=== PATIENT | female | born 1930 | race Caucasian/White ===

== ENCOUNTER 2018-07-01 10:08 | Observation (INO) | payer MEDICARE ==
[2018-07-01 11:36] LABS: ALT (SGPT) 14 U/L (8-55); AST (SGOT) 16 U/L (5-34); Alkaline Phosphatase 52 U/L (40-150); Anion Gap 15 mmol/L (10-20); BUN (Urea Nitrogen) 12 mg/dL (9.8-20.1); Bilirubin, Total 0.5 mg/dL (0.2-1.2); CK (CPK) 47 U/L (29-168); Calc. Creatinine Clearance 0 mL/min (70-130); Calcium 9.5 mg/dL (7.8-10.44); Carbon Dioxide 20 mmol/L (23-31); Chloride 106 mmol/L (98-107); Estimated GFR-MDRD 62; Globulin 3.4 g/dL (2.4-3.5); Glucose 98 mg/dL (83-110); Lipase 44 U/L (8-78); Potassium 4.2 mmol/L (3.5-5.1); Protein, Total 7.4 g/dL (6.0-8.3); Sodium 137 mmol/L (136-145)
[2018-07-01 11:38] LABS: CKMB 1.9 ng/mL (0-6.6); Troponin I Less than 0.010 ng/mL (< 0.028)
[2018-07-01 11:55] LABS: #Basophils 0.1 thou/uL (0.0-0.2); #Eosinphils 0.1 thou/uL (0.0-0.7); #Lymphocytes 2.5 thou/uL (1.20-3.40); #Monocytes 0.5 thou/uL (0.11-0.59); #Neutrophils 4.1 thou/uL (1.40-6.50); %Basophils 0.9 % (0.0-1.0); %Eosinophils 1.3 % (0.0-10.0); %Lymphocytes 34.7 % (21.0-51.0); %Monocytes 6.5 % (0.0-10.0); %Neutrophils 56.7 % (42.0-75.0); Hemoglobin 16.3 g/dL (12.0-16.0); Mean Corpuscular HGB CONC 32.4 g/dL (32.0-36.0); Mean Corpuscular Hemoglobin 31.1 pg (27.0-31.0); Mean Corpuscular Volume 95.9 fL (78.0-98.0); Mean Platelet Volume 8.1 fL (7.4-10.4); Platelet Count 261 thou/uL (130-400); Red Blood Cell (RBC) Count 5.25 mill/uL (4.20-5.40); White Blood Cell (WBC) Count 7.3 thou/uL (4.8-10.8)
--- NOTE | 2018-07-01 12:03 | RAD ---
PORTABLE CHEST: Date: 07/01/18 PROVIDED CLINICAL HISTORY: Chest pain. FINDINGS: Comparison with 04/19/17. The cardiac silhouette remains enlarged. Vascular calcification involves the aortic arch. No focal co nsolidation, pleural fluid, or pneumothorax apparent. IMPRESSION: No evidence for an acute cardiopulmonary process. POS: [facility]
[2018-07-01 13:50] VITALS: BMI 26.0
[2018-07-01 14:49] LABS: Troponin I Less than 0.010 ng/mL (< 0.028)
[2018-07-01] MEDS ORDERED: Nitroglycerin 0.4 MG TAB (25 Tab Bottle) SL PRN (16:59)
[2018-07-01] MEDS ORDERED: Ondansetron ODT 4 MG TAB PO PRN (16:59)
[2018-07-01] MEDS ORDERED: hydrALAZINE 20 MG/ML VIAL SLOW IVP PRN (16:59)
[2018-07-01] MEDS ORDERED: Acetaminophen 500 MG TAB PO PRN (16:59)
[2018-07-01] MEDS ORDERED: Ondansetron PF 4 MG/2 ML Vial IVP PRN (16:59)
[2018-07-01 18:04] LABS: Troponin I Less than 0.010 ng/mL (< 0.028)
--- NOTE | 2018-07-01 18:31 | HP ---
DATE OF ADMISSION: 07/01/2018 PRIMARY CARE PROVIDER: Baudilio Morales M.D. PRIMARY CARRY OUT CLERK: Dr. Chance Estes. CHIEF COMPLAINT: Palpitations and chest pain. HISTORY OF PRESENT ILLNESS: This is an 88-year-old female who presents to [facility] Emergency Department complaining of palpitations with pounding of her chest in the code clerk hours on 07/01/2018. The patient also noted a twinge in her left upper chest, lasting up to a minute , resolving spontaneously. The patient with known history of chronic atrial fibrillation on chronic anticoagulation with Eliquis. The patient states she has been compliant with her chronic medication regimen including daily aspirin 81 mg. The patient denied any fever, chills, cough, congestion, rece nt trauma, or exposure history. The patient states she remains active socially. Ambulates without a ssistance or difficulty and lives with her son, but continues to perform all activities of daily [place] ng. The patient denied any associated left arm discomfort, diaphoresis or jaw pain. The patient den ied any specific decreased exercise tolerance or decreased activity level. In the emergency room, th e patient underwent general evaluation including EKG showing atrial fibrillation with heart rates in the 60s. Screening metabolic survey showed negative cardiac biomarkers x2. PAST MEDICAL HISTORY: 1. Chronic atrial fibrillation. 2. Chronic anticoagulation with Eliquis. 3. Hypertension. 4. Hypothyroidism. 5. Dyslipidemia. 6. Coronary artery disease, medically managed. PAST SURGICAL HISTORY: 1. Status post umbilical hernia repair. 2. Status post rectocele repair. 3. Status post bladder suspension. 4. Status post cardiac catheterization. 5. Status post total hysterectomy. 6. Status post cataract removal. CURRENT MEDICATIONS: 1. Digoxin 0.125 mg p.o. daily. 2. Levothyroxine 88 mcg p.o. daily. 3. Nitroglycerin 0.4 mg sublingual every 5 minutes p.r.n. chest pain. 4. Spironolactone 25 mg p.o. daily. 5. Eliquis 2.5 mg p.o. b.i.d. 6. Lopressor 25 mg p.o. b.i.d. ALLERGIES: CODEINE, IODINE, MORPHINE SULFATE, SULFA. FAMILY HISTORY: Mother with liver cancer. Father with prostate and colon cancer. SOCIAL HISTORY: Patient resides near [place], [place]. No current alcohol, tobacco or illicit drug use. Functional of all activities of daily living. Resides with her son and daughter nearby. REVIEW OF SYSTEMS: The following complete review of systems was negative, unless otherwise mentioned in the HPI or below: Constitutional: Weight loss or gain, ability to conduct usual activities. Sk in: Rash, itching. Eyes: Double vision, pain. ENT/Mouth: Nose bleeding, neck stiffness, pain, te nderness. Cardiovascular: Palpitations, dyspnea on exertion, orthopnea. Respiratory: Shortness of breath, wheezing, cough, hemoptysis, fever or night sweats. Gastrointestinal: Poor appetite, abdom inal pain, heartburn, nausea, vomiting, constipation, or diarrhea. Genitourinary: Urgency, frequenc y, dysuria, nocturia. Musculoskeletal: Pain, swelling. Neurologic/Psychiatric: Anxiety, depressio n. Allergy/Immunologic: Skin rash, bleeding tendency. PHYSICAL EXAMINATION: VITAL SIGNS: Currently, blood pressure 119/69, pulse 86, respiratory rate 20, temperature 97.9 degre es Fahrenheit, O2 saturation 95% on room air. GENERAL APPEARANCE: This is an 88-year-old female, alert and oriented x3, pleasant, respon sive, talkative, in no acute distress. HEENT: Pupils are equal, round, and reactive to light and accommodation. Extraocular muscles are in tact. No scleral icterus, no conjunctival injection. Nares patent. OP is clear. Teeth in good rep air. NECK: Supple, no cervical adenopathy, no thyromegaly, no carotid bruits, no JVD appreciated. Cervic al spine with full active and passive range of motion. No meningeal signs noted. CHEST: Lungs are clear to auscultation bilaterally. CARDIOVASCULAR: S1, S2 with irregular rate and rhythm. No murmur, rub or gallop appreciated. ABDOMEN: Obese, soft, nontender, nondistended. Bowel sounds are positive in all four quadrants. Th ere is no hepatosplenomegaly, no abdominal bruits, no rebound or guarding appreciated. EXTREMITIES: Warm and dry with fair turgor. Minimal edema at the ankle region bilaterally. Pulses palpable distally at the dorsalis pedis, posterior tibial, and popliteal arteries bilaterally. Capil evie refill less than 2 seconds. NEUROLOGIC: Cranial nerves II-XII are grossly intact. No focal or lateralizing signs appreciated. PERTINENT LABORATORY AND X-RAY FINDINGS: Complete metabolic profile within normal limits. Troponin negative x2. Lipase 44. CBC showed a white blood cell count of 7.3, hemoglobin 16, hematocrit 50, p latelet count 261 with normal differential. Portable chest x-ray dated 07/01/2018 showed no acute ca rdiopulmonary process. EKG dated 07/01/2018 by my interpretation shows atrial fibrillation with hear t rates in the 60s. Normal R-wave progression noted in the precordial leads. Normal axis. No acute ST-T wave changes appreciated. ASSESSMENT AND PLAN: 1. Chronic atrial fibrillation. The patient will be observed on the telemetry unit. Currently, rat e controlled. We will continue home regimen of metoprolol 25 mg b.i.d. with additional digoxin 0.125 mg daily. No current evidence of rapid ventricular response. Check 2D transthoracic echocardiogram in the a.m. 2. Chest pain, etiology unclear. Potentially related to #1. Continue trending cardiac biomarkers. Check fasting lipid profile in the a.m. P.r.n. nitroglycerin. 3. Hypothyroidism. Resume levothyroxine 88 mcg p.o. daily. Check TSH level in the a.m. 4. Hypertension. Stable. Resume home antihypertensive regimen and monitor clinical response. 5. Prophylaxis. Sequential compression devices while in bed. Pepcid 20 mg p.o. b.i.d. 6. Code status is FULL. Surrogate medical decision maker is the patient's daughter.
[2018-07-01] MEDS: Famotidine 20 MG TAB PO SCH (20:22)
[2018-07-01] MEDS: Apixaban 2.5 MG TAB PO SCH (20:22)
[2018-07-01] MEDS: Metoprolol Tartrate 25 MG TAB PO SCH (20:23)
[2018-07-02 04:12] LABS: Anion Gap 11 mmol/L (10-20); BUN (Urea Nitrogen) 16 mg/dL (9.8-20.1); Calc. Creatinine Clearance 44 mL/min (70-130); Carbon Dioxide 18 mmol/L (23-31); Cardiac Risk 6.3 (Less than 4.5); Chloride 108 mmol/L (98-107); Cholesterol 171 mg/dl (< 200 Desired); Estimated GFR-MDRD 58; Glucose 109 mg/dL (83-110); HDL Cholesterol 27 mg/dL (>60 Neg Risk); LDL Cholesterol, Calculated 100 mg/dL; Magnesium 2.1 mg/dL (1.6-2.6); Potassium 4.3 mmol/L (3.5-5.1); Sodium 133 mmol/L (136-145); Triglycerides 220 mg/dL (Less than 150)
[2018-07-02 04:49] LABS: Band 5 % (5-11); Eosinophils 2 % (0-10); Lymphocytes 47 % (21-51); MDiff Complete? YES; Mean Corpuscular HGB CONC 32.4 g/dL (32.0-36.0); Mean Corpuscular Hemoglobin 31.3 pg (27.0-31.0); Mean Corpuscular Volume 96.8 fL (78.0-98.0); Mean Platelet Volume 8.4 fL (7.4-10.4); Monocytes 4 % (0-10); Neutrophil 41 % (42-75); Platelet Count 248 thou/uL (130-400); Red Blood Cell (RBC) Count 4.78 mill/uL (4.20-5.40); White Blood Cell (WBC) Count 7.2 thou/uL (4.8-10.8)
[2018-07-02] MEDS: Levothyroxine Sodium 88 MCG TAB PO SCH (05:38)
[2018-07-02] MEDS: Digoxin 0.125 MG TAB PO SCH (09:09)
[2018-07-02] MEDS: Metoprolol Tartrate 25 MG TAB PO SCH ×2 (09:09→21:29)
[2018-07-02] MEDS: Apixaban 2.5 MG TAB PO SCH (09:09)
[2018-07-02] MEDS: Spironolactone 25 MG TAB PO SCH (09:10)
--- NOTE | 2018-07-02 11:06 | PDOC.PN ---
- Subjective Encounter Start Date: 07/02/18 Encounter Start Time: 09:30 Subjective: f/u on admission for chronic Afib with bradycardic component -: Patient seen this am, denies any complaints today - Objective Resuscitation Status: Resuscitation Status FULL:Full Resuscitation Vital Signs & Weight: Vital Signs (12 hours) Temp Pulse Resp BP BP Pulse Ox 07/02/18 09:09 82 07/02/18 07:29 97.8 F 82 20 111/70 94 L 07/02/18 03:34 68 20 120/64 95 07/01/18 23:05 98.1 F 79 20 94/59 L 96 Weight Weight 64.552 kg I&O: 07/01/18 07/02/18 07/03/18 06:59 06:59 06:59 Intake Total 450 360 Output Total 650 600 Balance -200 -240 Result Diagrams: 07/02/18 03:36 07/02/18 03:36 Phys Exam - Physical Examination Constitutional: NAD HEENT: PERRLA Neck: no nodes, no JVD Respiratory: clear to auscultation bilateral Cardiovascular: irregular Gastrointestinal: positive bowel sounds Musculoskeletal: no edema, pulses present Neurological: non-focal, normal sensation, moves all 4 limbs Lymphatic: no nodes Psychiatric: normal affect, A&O x 3 Skin: no rash, normal turgor, cap refill <2 seconds Dx/Plan (1) Acute on chronic diastolic (congestive) heart failure Code(s): I50.33 - ACUTE ON CHRONIC DIASTOLIC (CONGESTIVE) HEART FAILURE Status : Chronic Comment: improved with Lasix (2) Atrial fibrillation with RVR Code(s): I48.91 - UNSPECIFIED ATRIAL FIBRILLATION Status: Chronic Comment: Off Cardizem drip, Metoprolol added (3) CAD (coronary artery disease) Code(s): I25.10 - ATHSCL HEART DISEASE OF [place] CORONARY ARTERY W/O ANG PCTRS Status: Chronic (4) DM2 (diabetes mellitus, type 2) Status: Chronic (5) HLD (hyperlipidemia) Code(s): E78.5 - HYPERLIPIDEMIA, UNSPECIFIED Status: Chronic (6) Hypothyroidism Code(s): E03.9 - HYPOTHYROIDISM, UNSPECIFIED Status: Chronic - Plan cont current plan of care Dr. Alicia saw patient this am, recommends -: increasing lopressor, hold Eliquis today and tomorrow -: Would like Dr. Estes to see tomorrow and weigh in on pacemaker placement -: Echocardiogram has been done, awaiting results -: Will continue to monitor, check labs * .
[2018-07-02] MEDS ORDERED: Metoprolol Tartrate 5 MG/5 ML VIAL IVP SCH ×2 (11:15→14:15)
--- NOTE | 2018-07-02 16:16 | CON ---
DATE OF CONSULTATION: 07/02/2018 HISTORY OF PRESENT ILLNESS: Patient is an 88-year-old woman with a history of coronary artery disease who presented with rapid palpitations and chest discomfort. In 2005 she underwent cardiac catheterization, and was found to have a 40%-50% right RCA lesion, 30%-40% mid LAD lesion. The patient has been on medical therapy. She also was diagnosed with atrial fibrillation. She has been treated with digoxin and diltiazem. She is on chronic anticoagulation therapy. The patient was in usual state of health when she once again felt rapid palpitations and left-sided chest discomfort. This lasted for approximately 20 minutes. The patient took some medication and eventually her symptoms resolved. The patient denies having any present palpitations or chest discomfort. PAST MEDICAL HISTORY: 1. Coronary artery disease. 2. Atrial fibrillation. 3. Hypertension. 4. Dyslipidemia. PAST SURGICAL HISTORY: hernia repair, bladder surgery, hysterectomy, cataract surgery, rectocele surgery. MEDICATIONS: Digoxin 0.125 daily, Synthroid 88 mcg daily, spironolactone 25 daily, Eliquis 2.5 b.i.d., and Lopressor 25 daily. ALLERGIES: She is allergic to CODEINE, IODINE, MORPHINE and SULFA. SOCIAL HISTORY: Nonsmoker. FAMILY HISTORY: There is no strong family history of heart disease. REVIEW OF SYSTEMS: Ten-point system otherwise unremarkable. No history of bruising or bleeding. PHYSICAL EXAMINATION: GENERAL: This is an obese woman in no acute distress. VITAL SIGNS: Blood pressure 111/70. NECK: Showed no jugular distention. LUNGS: Clear to auscultation. HEART: Irregular rate and rhythm, normal S1, S2. ABDOMEN: Nondistended. EXTREMITIES: Showed no edema. VASCULAR: Radial pulses are 2+. LABORATORIES: White blood count 7.2, hemoglobin 15.0, hematocrit 46.3, and her platelets are 248. Sodium was 133, potassium 4.3, chloride 108, bicarbonate 18 , BUN 16, creatinine 0.91, troponin less than 0.01. Her EKG revealed her to have atrial fibrillation with a nonspecific T-wave abnormality. IMPRESSION: 1. Atrial fibrillation with rapid ventricular response. 2. Chest pain. 3. Coronary artery disease. 4. Hypertension. This woman presented with chest pain and atrial fibrillation with rapid ventricular response. She also has evidence of having a slow heart rate. At this time, we would try to increase her beta antonia therapy and continue on digoxin. The patient may need an electronic pacemaker because of difficult to control atrial fibrillation. We will hold the patient's Eliquis. We will follow this patient with you through her hospitalization. ZOILA
[2018-07-02] MEDS: Famotidine 20 MG TAB PO SCH (21:32)
[2018-07-03 04:11] LABS: #Basophils 0.1 thou/uL (0.0-0.2); #Eosinphils 0.1 thou/uL (0.0-0.7); #Lymphocytes 3.6 thou/uL (1.20-3.40); #Monocytes 0.6 thou/uL (0.11-0.59); #Neutrophils 2.9 thou/uL (1.40-6.50); %Basophils 0.8 % (0.0-1.0); %Eosinophils 1.6 % (0.0-10.0); %Lymphocytes 49.6 % (21.0-51.0); %Monocytes 7.7 % (0.0-10.0); %Neutrophils 40.3 % (42.0-75.0); Hemoglobin 16.6 g/dL (12.0-16.0); Mean Corpuscular HGB CONC 34.2 g/dL (32.0-36.0); Mean Corpuscular Hemoglobin 32.5 pg (27.0-31.0); Mean Corpuscular Volume 95.1 fL (78.0-98.0); Mean Platelet Volume 8.3 fL (7.4-10.4); Platelet Count 214 thou/uL (130-400); Red Blood Cell (RBC) Count 5.09 mill/uL (4.20-5.40); White Blood Cell (WBC) Count 7.2 thou/uL (4.8-10.8)
[2018-07-03] MEDS: Levothyroxine Sodium 88 MCG TAB PO SCH (05:47)
[2018-07-03 06:11] LABS: ALT (SGPT) 9 U/L (8-55); AST (SGOT) 15 U/L (5-34); Albumin 3.6 g/dL (3.4-4.8); Alkaline Phosphatase 43 U/L (40-150); Anion Gap 13 mmol/L (10-20); BUN (Urea Nitrogen) 15 mg/dL (9.8-20.1); Bilirubin, Total 0.5 mg/dL (0.2-1.2); Calc. Creatinine Clearance 42 mL/min (70-130); Calcium 9.3 mg/dL (7.8-10.44); Carbon Dioxide 21 mmol/L (23-31); Chloride 106 mmol/L (98-107); Estimated GFR-MDRD 55; Globulin 3.2 g/dL (2.4-3.5); Glucose 106 mg/dL (83-110); Potassium 4.1 mmol/L (3.5-5.1); Protein, Total 6.8 g/dL (6.0-8.3); Sodium 136 mmol/L (136-145)
[2018-07-03] MEDS: Digoxin 0.125 MG TAB PO SCH (08:34)
[2018-07-03] MEDS: Spironolactone 25 MG TAB PO SCH (08:35)
[2018-07-03] MEDS: Metoprolol Tartrate 25 MG TAB PO SCH ×2 (08:35→20:20)
[2018-07-03] MEDS ORDERED: ADENOSINE 60 MG/20 ML VIAL ONE (10:33)
--- NOTE | 2018-07-03 15:45 | NM ---
CARDIAC SPECT: CLINICAL HISTORY: 88-year-old female with chest pain, coronary artery disease, hypertension, dyslipidemia. TECHNIQUE: A myocardial perfusion scan was performed using the single isotope one day protocol with technetium-9 9m sestamibi. 10 mCi were injected intravenously for the rest exam followed by 27 mCi for the stress exam. Pharmacologic stress with Adenosine was monitored and interpreted by Taryn Schumacher. FINDINGS: Homogeneous tracer distribution is seen in the myocardial segments on stress and rest images without fixed or reversible defects. TID ratio measures 1.37. GATED SPECT LVEF: 82%. WALL MOTION EXAM: Normal. IMPRESSION: TID ratio is 1.37. Clinical correlation is recommended. POS: [facility]
--- NOTE | 2018-07-03 17:59 | PDOC.PN ---
- Subjective Encounter Start Date: 07/03/18 Encounter Start Time: 16:00 Patient lying in bed, denies chest pain, shortness of breath or abdominal pain. Troponins negative. Echo reviewed and EF 60-65%. Dr Estes recommending Stress test and no further plans for pacemaker at this time as she is not bradycardic. - Objective Resuscitation Status: Resuscitation Status FULL:Full Resuscitation MAR Reviewed: Yes Vital Signs & Weight: Vital Signs (12 hours) Temp Pulse Resp BP Pulse Ox 07/03/18 15:27 97.8 F 75 20 117/83 96 07/03/18 08:34 82 07/03/18 07:24 97.7 F 82 18 114/70 97 Weight Weight 142 lb 5 oz I&O: 07/02/18 07/03/18 07/04/18 06:59 06:59 06:59 Intake Total 450 840 750 Output Total 650 1000 Balance -200 -160 750 Result Diagrams: 07/03/18 03:48 07/03/18 03:48 Radiology Reviewed by me: Yes EKG Reviewed by me: Yes Phys Exam - Physical Examination Constitutional: NAD HEENT: PERRLA, moist MMs, sclera anicteric, oral pharynx no lesions Neck: no nodes, no JVD, supple Respiratory: no wheezing, no rales, no rhonchi, clear to auscultation bilateral Cardiovascular: RRR, no significant murmur, no rub Gastrointestinal: soft, non-tender, no distention, positive bowel sounds Musculoskeletal: no edema, pulses present Neurological: non-focal, normal sensation, moves all 4 limbs Lymphatic: no nodes Psychiatric: normal affect, A&O x 3 Skin: no rash, normal turgor Deviation from normal: Diffuse bruising upper extremities Dx/Plan (1) Acute on chronic diastolic (congestive) heart failure Code(s): I50.33 - ACUTE ON CHRONIC DIASTOLIC (CONGESTIVE) HEART FAILURE Status : Chronic Comment: improved with Lasix (2) Atrial fibrillation with RVR Code(s): I48.91 - UNSPECIFIED ATRIAL FIBRILLATION Status: Chronic Comment: Off Cardizem drip, Metoprolol added (3) CAD (coronary artery disease) Code(s): I25.10 - ATHSCL HEART DISEASE OF [place] CORONARY ARTERY W/O ANG PCTRS Status: Chronic (4) DM2 (diabetes mellitus, type 2) Status: Chronic - Plan cont current plan of care * Continue medical management with eliquis, digoxin, Metoprolol * Echo reviewed and unremarkable with EF of 60-65% * Stress test was unremarkablewith no signs of ischemia or infarct with no wall motion abnormalities. TID elevated, but Dr Estes believes this is insignificant , no plans for pacemaker * Due to transportation, patient unable to find a ride tonight but will be discharged in the AM
[2018-07-03] MEDS: Famotidine 20 MG TAB PO SCH (20:20)
--- NOTE | 2018-07-03 23:59 | PRG ---
DATE OF SERVICE: 07/03/2018 HISTORY: Ms. Castañeda is doing well, no chest pain or pressure. Her metoprolol dose was increased. She has not had any bradycardia. PHYSICAL EXAMINATION: VITAL SIGNS: Blood pressure 117/83, pulse 70 and irregularly irregular. ABDOMEN: Soft, nontender. EXTREMITIES: No edema. ASSESSMENT: 1. Episode of rapid heart rate with chronic atrial fibrillation, now rate controlled. 2. Stress test was negative for ischemia. It was noted that there was some increase TID (transient ischemic dilatation); however, this does not appear to be clinically significant as the ventricular v olumes were extremely small and so the left ventricle was not dilated . The reported volume is 20 mL; with stress, it was 29 mL end diastolic and 5 mm end systolic, so clearly not dilated. 1. No evidence of stress induced ischemia. 2. Heart rate is controlled with current regimen. Okay to be released home. For transportation [facility], the patient will need to be kept tonight and go home tomorrow.
[2018-07-04 04:17] LABS: #Basophils 0.1 thou/uL (0.0-0.2); #Eosinphils 0.2 thou/uL (0.0-0.7); #Lymphocytes 3.8 thou/uL (1.20-3.40); #Monocytes 0.6 thou/uL (0.11-0.59); #Neutrophils 3.6 thou/uL (1.40-6.50); %Basophils 1.4 % (0.0-1.0); %Eosinophils 1.9 % (0.0-10.0); %Lymphocytes 45.8 % (21.0-51.0); %Monocytes 7.4 % (0.0-10.0); %Neutrophils 43.5 % (42.0-75.0); Hemoglobin 16.2 g/dL (12.0-16.0); Mean Corpuscular HGB CONC 32.4 g/dL (32.0-36.0); Mean Corpuscular Hemoglobin 30.9 pg (27.0-31.0); Mean Corpuscular Volume 95.3 fL (78.0-98.0); Mean Platelet Volume 8.6 fL (7.4-10.4); Platelet Count 259 thou/uL (130-400); RBC Distribution Width 11.9 % (11.5-14.5); Red Blood Cell (RBC) Count 5.24 mill/uL (4.20-5.40); White Blood Cell (WBC) Count 8.3 thou/uL (4.8-10.8)
[2018-07-04 04:40] LABS: ALT (SGPT) 14 U/L (8-55); AST (SGOT) 18 U/L (5-34); Albumin 3.5 g/dL (3.4-4.8); Alkaline Phosphatase 45 U/L (40-150); Anion Gap 14 mmol/L (10-20); BUN (Urea Nitrogen) 15 mg/dL (9.8-20.1); Bilirubin, Total 0.5 mg/dL (0.2-1.2); Calc. Creatinine Clearance 45 mL/min (70-130); Calcium 9.3 mg/dL (7.8-10.44); Carbon Dioxide 19 mmol/L (23-31); Chloride 108 mmol/L (98-107); Estimated GFR-MDRD 59; Globulin 3.3 g/dL (2.4-3.5); Glucose 101 mg/dL (83-110); Potassium 4.5 mmol/L (3.5-5.1); Protein, Total 6.8 g/dL (6.0-8.3); Sodium 136 mmol/L (136-145)
[2018-07-04] MEDS: Levothyroxine Sodium 88 MCG TAB PO SCH (05:28)
[2018-07-04 08:02] VITALS: BP 117/72; TEMP 98
[2018-07-04] MEDS: Spironolactone 25 MG TAB PO SCH (08:41)
[2018-07-04] MEDS: Digoxin 0.125 MG TAB PO SCH (08:41)
[2018-07-04] MEDS: Metoprolol Tartrate 25 MG TAB PO SCH (08:41)
[2018-07-04] MEDS ORDERED: Apixaban 2.5 MG TAB PO SCH (09:00)
--- NOTE | 2018-07-04 18:52 | DIS ---
DATE OF ADMISSION: 07/01/2018 DATE OF DISCHARGE: 07/04/2018 DISCHARGE DIAGNOSES: 1. Chronic atrial fibrillation, currently rate controlled. 2. Chest pain likely related to atrial fibrillation, resolved. 3. Hypothyroidism, stable. 4. Hypertension, stable. CONSULTATIONS: Cardiology services, Dr. Alicia and Dr. Estes. PERTINENT LABORATORY AND DIAGNOSTIC FINDINGS: WBC 8.3, RBC 5.24, hemoglobin 16.2. Sodium 136, potas sium 4.5, creatinine 0.90, GFR 59, glucose 101, magnesium 2.1, AST 18, ALT 14, troponin less than 0.0 10 x2. Triglycerides 220, total cholesterol 171, LDL cholesterol 100, HDL cholesterol 27. TSH 5.97. Portable chest x-ray showed no evidence of acute cardiopulmonary process. Cardiolite stress test s howed no wall motion abnormalities and no signs of ischemia. Echocardiogram displays an ejection fra ction of 60-65%. HOSPITAL COURSE: Mrs. Castañeda is a pleasant 88-year-old female who had presented to the emergency d [facility] with chest discomfort and palpitations. In the ER, she had an EKG which showed atrial fibr illation with heart rates in the 60s. Serial troponins were obtained and found to be negative x2. S he had stated that her palpitations would last several moments; however, would spontaneously resolve. She was continued on home regimen for atrial fibrillation, hypothyroidism and hypertension. Cardio logy services, Dr. Alicia were consulted. Her home dose of metoprolol was increased to 50 mg twice daily. She had tolerated this well. She underwent an echocardiogram which showed an ejection fract ion of 60-65%. There was some concern of her being bradycardic and needing a pacemaker; however, Dr. Estes came and evaluated the patient. Her heart rate remained stable with a rate in the 60s and [address] Estes ordered a stress test which was found to be unremarkable and showed no signs of ischem ia with no wall motion abnormalities. He had determined no further workup needed and patient did not require a pacemaker placement at this time. Dr. Estes did determine that the patient was stable fr om a cardiology standpoint; however, did recommend her follow up as an outpatient. Due to patient's lack of transportation, she was held overnight and seen and examined prior to discharge. She had den ied any further complaints of chest pain, shortness of breath or abdominal pain. She was instructed to take the new dose of metoprolol 50 mg twice daily along with her other home medications. She had verbalized her understanding of the plan. She was determined to be medically stable for discharge ho co on 07/04/2018. DISCHARGE MEDICATIONS: 1. Metoprolol 50 mg twice daily. 2. Spironolactone 25 mg daily. 3. Digoxin 0.125 mg oral daily. 4. Levothyroxine 88 mcg oral daily. 5. Apixaban 2.5 mg twice daily. 6. Nitroglycerin 0.4 mg sublingual every 5 minutes as needed for chest pain. 7. Aspirin 81 mg at bedtime. FOLLOWUP: The patient was instructed to follow up with her primary care physician, Dr. Morales in 1-2 weeks. She was also instructed to follow up with her customer advisor in 2-4 weeks. CONDITION ON DISCHARGE: Stable. ACTIVITY: As tolerated. DIET: Heart healthy. CODE STATUS: FULL CODE. DISPOSITION: Home on 07/04/2018.
== END 2018-07-04 09:42 | disposition home or self-care (01) ==
LOC: ERS 10:08 → 2SW 13:43
PROVIDERS: ADMIT Family Medicine; ATTEND Family Medicine
DX: I48.2 Chronic atrial fibrillation (principal); I11.0 Hypertensive heart disease with heart failure; I50.33 Acute on chronic diastolic (congestive) heart failure; E11.9 Type 2 diabetes mellitus without complications; E03.9 Hypothyroidism, unspecified; I25.10 Atherosclerotic heart disease of native coronary artery without angina pectoris; E78.5 Hyperlipidemia, unspecified; Z79.899 Other long term (current) drug therapy; Z79.01 Long term (current) use of anticoagulants; Z88.2 Allergy status to sulfonamides; Z91.041 Radiographic dye allergy status
CPT/HCPCS: 71045; 78452; 80048; 80053 ×3; 80061; 82550; 82553; 83690; 83735; 84443; 84484 ×2; 85007; 85025 ×3; 85027; 93005; 93017; 93306; 96374; 99285; A9500; G0378 ×3; 36415; J0153

== ENCOUNTER 2019-03-17 07:50 | Emergency (ER) | payer MEDICARE ==
[2019-03-17 08:28] LABS: #Basophils 0.1 thou/uL (0.0-0.2); #Eosinphils 0.1 thou/uL (0.0-0.7); #Lymphocytes 2.4 thou/uL (1.20-3.40); #Monocytes 0.4 thou/uL (0.11-0.59); %Basophils 1.2 % (0.0-1.0); %Eosinophils 1.1 % (0.0-10.0); %Lymphocytes 40.2 % (21.0-51.0); %Monocytes 6.5 % (0.0-10.0); Hemoglobin 15.4 g/dL (12.0-16.0); Mean Corpuscular HGB CONC 34.1 g/dL (32.0-36.0); Mean Corpuscular Hemoglobin 32.1 pg (27.0-31.0); Mean Corpuscular Volume 94.2 fL (78.0-98.0); Mean Platelet Volume 8.6 fL (7.4-10.4); Platelet Count 223 thou/uL (130-400); RBC Distribution Width 12.2 % (11.5-14.5); Red Blood Cell (RBC) Count 4.81 mill/uL (4.20-5.40)
[2019-03-17 08:48] LABS: Digoxin 0.82 ng/mL (0.8-2.0)
[2019-03-17 08:49] LABS: ALT (SGPT) 10 U/L (8-55); AST (SGOT) 14 U/L (5-34); Albumin 3.7 g/dL (3.4-4.8); Alkaline Phosphatase 47 U/L (40-150); Anion Gap 11 mmol/L (10-20); BUN (Urea Nitrogen) 11 mg/dL (9.8-20.1); Bilirubin, Total 0.4 mg/dL (0.2-1.2); Calc. Creatinine Clearance 0 mL/min (70-130); Calcium 9.4 mg/dL (7.8-10.44); Carbon Dioxide 24 mmol/L (23-31); Chloride 105 mmol/L (98-107); Estimated GFR-MDRD 65; Globulin 3.1 g/dL (2.4-3.5); Glucose 100 mg/dL (83-110); Potassium 3.8 mmol/L (3.5-5.1); Protein, Total 6.8 g/dL (6.0-8.3); Sodium 136 mmol/L (136-145)
[2019-03-17 09:37] LABS: Bilirubin Negative (Negative); Blood, Urine Negative (Negative); Clarity Clear (Clear); Glucose, Urine (Dipstick) Normal (Negative); Leukocyte Negative Leu/uL (Negative); Nitrite Negative (Negative); Protein, Urine (Dipstick) Negative (Neg-Trace); Urobilinogen Normal mg/dL (Less than 2)
--- NOTE | 2019-03-17 09:40 | RAD ---
PORTABLE CHEST 1 VIEW: Date: 03/17/19 Time: 0821 hours HISTORY: Palpitations. FINDINGS: Comparison made with exam of 07/01/18. The heart size is prominent but stable. The aorta is tortuous. The lungs are well expanded without lo bar consolidation, pneumothoraces, or pleural effusions. A right humeral head prosthesis remains in p lace. There are degenerative changes in the left shoulder joint. IMPRESSION: No acute process. POS: [facility]
== END 2019-03-17 10:32 | disposition home or self-care (01) ==
LOC: ERS 07:50
DX: R00.2 Palpitations (principal); E03.9 Hypothyroidism, unspecified; I49.9 Cardiac arrhythmia, unspecified; I48.91 Unspecified atrial fibrillation; I10 Essential (primary) hypertension; Z79.899 Other long term (current) drug therapy; Z79.01 Long term (current) use of anticoagulants; Z79.82 Long term (current) use of aspirin
CPT/HCPCS: 36415; 71045; 80053; 80162; 81003; 84484; 85025; 93005

== ENCOUNTER 2019-09-01 10:05 | Inpatient (IN) | payer MEDICARE ==
[2019-09-01 11:05] LABS: #Basophils 0.1 thou/uL (0.0-0.2); #Eosinphils 0.1 thou/uL (0.0-0.7); #Lymphocytes 2.8 thou/uL (1.20-3.40); #Monocytes 0.4 thou/uL (0.11-0.59); #Neutrophils 4.5 thou/uL (1.40-6.50); %Basophils 1.4 % (0.0-1.0); %Eosinophils 1.5 % (0.0-10.0); %Lymphocytes 35.5 % (21.0-51.0); %Monocytes 5.1 % (0.0-10.0); %Neutrophils 56.5 % (42.0-75.0); Mean Corpuscular HGB CONC 33.8 g/dL (32.0-36.0); Mean Corpuscular Volume 97.5 fL (78.0-98.0); Mean Platelet Volume 8.5 fL (7.4-10.4); Platelet Count 239 thou/uL (130-400); RBC Distribution Width 12.2 % (11.5-14.5); Red Blood Cell (RBC) Count 4.86 mill/uL (4.20-5.40)
--- NOTE | 2019-09-01 11:06 | CT ---
CT Brain WO Con History: Left-sided tingling Comparison: MRI brain 2014 Findings: There is no acute hemorrhage or infarct. No midline shift or mass effect. Moderate atrophy. Mild ex vacuo dilatation of the extra-axial CSF spaces. There is hyperostosis of the inner table fron herminio calvarium. Calvarium is demineralized. Impression: Chronic findings. No acute intracranial abnormality.
[2019-09-01 11:10] LABS: Bacteria/HPF 4+ HPF (None Seen); Bilirubin Negative (Negative); Blood, Urine Trace (Negative); Clarity Turbid (Clear); Glucose, Urine (Dipstick) Normal (Negative); Leukocyte 500 Leu/uL (Negative); Nitrite 1+ (Negative); Protein, Urine (Dipstick) Negative (Neg-Trace); Urobilinogen Normal mg/dL (Less than 2); WBC/HPF Greater than 50 HPF (0-3)
[2019-09-01 11:13] LABS: INR-International Normal Ratio 1.1; PTT 28.6 SEC (22.9-36.1); Prothrombin Time 13.7 SEC (12.0-14.7)
[2019-09-01 11:32] LABS: ALT (SGPT) 18 U/L (8-55); AST (SGOT) 23 U/L (5-34); Albumin 3.5 g/dL (3.4-4.8); Alkaline Phosphatase 45 U/L (40-110); Anion Gap 14 mmol/L (10-20); BUN (Urea Nitrogen) 14 mg/dL (9.8-20.1); Bilirubin, Total 0.8 mg/dL (0.2-1.2); Calc. Creatinine Clearance 0 mL/min (70-130); Calcium 9.2 mg/dL (7.8-10.44); Carbon Dioxide 18 mmol/L (23-31); Chloride 109 mmol/L (98-107); Estimated GFR-MDRD 69; Globulin 3.5 g/dL (2.4-3.5); Glucose 93 mg/dL (83-110); Potassium 4.4 mmol/L (3.5-5.1); Sodium 137 mmol/L (136-145)
[2019-09-01] MEDS ORDERED: Nitrofurantoin Macrocrystal 50 MG CAP PO SCH (12:00)
[2019-09-01] MEDS ORDERED: cefTRIAXone\\ROCEPHIN 1 GM VIAL ONE (12:36)
[2019-09-01 13:56] VITALS: BMI 25.0
[2019-09-01] MEDS: Sodium Chloride 0.9% 1,000 ML IV SCH ×2 (15:36→22:06)
--- NOTE | 2019-09-01 17:21 | PDOC.EVN ---
Event Note - Event Note Event Note: per her home meds she is on eliquis but 2.5mg bid will increase it to 5mg bid. Her creatinine is normal and she weighs 136lbs.
[2019-09-01] MEDS: cefTRIAXone\\ROCEPHIN 1 GM in Sodium Chloride 0.9% 100 ML IVPB SCH (18:37)
--- NOTE | 2019-09-01 19:57 | HP ---
CHIEF COMPLAINT: Left-sided weakness. HISTORY OF PRESENT ILLNESS: The patient is an 89-year-old female, who initially presented to the hospital after waking up around 5 a.m. complaining of complete left-sided numbness and weakness. The patient stated that she tried to get out to her bedside commode and felt very weak on her left side; however, she did make it. She also complains of some dysuria. Denies any stroke-like symptoms in the past. Denies any recent fevers or chills. She states that she does have chronic diarrhea. The patient lives alone. She does have a history of atrial fibrillation and has been compliant with her medications. PAST MEDICAL HISTORY: 1. She has a history of atrial fibrillation. 2. Hypertension. PAST SURGICAL HISTORY: She has had appendectomy. She has had a cholecystectomy. She has had a hernia repair. She has had rectocele repair and hysterectomy. SOCIAL HISTORY: She lives alone. Her daughter is at the bedside. She has a secondhand smoking history. No alcohol use. No drug use. FAMILY HISTORY: No history of heart disease or strokes. ALLERGIES: SHE IS ALLERGIC TO CODEINE, IODINE, MORPHINE, AND SULFA. MEDICATIONS: She is on, 1. Spironolactone 25 mg daily. 2. Metoprolol 25 mg daily. 3. Aspirin 81 mg daily. 4. Eliquis 5 mg twice a day. 5. Digoxin 125 mcg daily. 6. Levothyroxine 175 mcg daily. REVIEW OF SYSTEMS: All negative except for the ones mentioned above in the HPI. PHYSICAL EXAMINATION: VITAL SIGNS: Temperature 98.0, pulse 81, respirations 16, 99% on room air, blood pressure 155/86. GENERAL: She is awake, alert, and oriented x3. Does not appear in any distress. HEENT: Normocephalic and atraumatic. No lymphadenopathy noted. NEUROLOGIC: Cranial nerves 3 through 11 are intact. CV: S1 and S2 present. Irregularly irregular. LUNGS: Clear to auscultation. No rhonchi or wheezes noted. ABDOMEN: Soft and nontender. Bowel sounds are present x2. EXTREMITIES: No edema. NEUROVASCULAR: She has decreased strength to her left lower extremity compared to her right. Sensation has decreased on the left upper and lower extremity compared to her right. SKIN: She does have a decubitus ulcer to her bottom and she does have some minor lacerations to her vaginal area. LABORATORY RESULTS: WBCs of 8.0, hemoglobin of 16.0, hematocrit of 47.4, platelets of 239. Chemistry; sodium of 137, potassium 4.4, BUN of 14, creatinine 0.79. Her urine appears grossly concentrated with leukocyte esterase of 500, wbc's of greater than 50. She did have a CT brain, which did not show any acute abnormalities. ASSESSMENT AND PLAN: The patient is a very pleasant 89-year-old female, who presents to the hospital with left-sided weakness. 1. Left-sided weakness. Most likely, possible transient ischemic attack versus stroke. She is currently on Eliquis. We will continue her Eliquis for now. I will also consult Neurology. We will get an MRI brain. We will also get carotid Dopplers and echocardiogram. 2. Urinary tract infection. We will start her on ceftriaxone. Her urine culture has been sent. 3. Hypertension. We will hold off on her blood pressure medications. We will monitor closely. 4. Deep venous thrombosis prophylaxis. The patient is already on Eliquis. Job ID: [id number]
[2019-09-01] MEDS ORDERED: Phenazopyridine HCl 97.5 MG TABLET PO SCH (20:30)
[2019-09-01] MEDS ORDERED: Apixaban 5 MG TAB PO SCH (21:00)
--- NOTE | 2019-09-01 21:15 | ULT ---
BILATERAL CAROTID DUPLEX ULTRASOUND: HISTORY: Left-sided weakness TECHNIQUE: Grayscale, color-flow and spectral Doppler ultrasound imaging of the extracranial carotid artery syst ems and vertebral arteries was performed bilaterally. FINDINGS: There are mild atherosclerotic plaque involving the proximal internal carotid arteries bilaterally. The peak systolic velocity in the right ICA measures 58.5 cm/s. The peak systolic velocity in the ri ght CCA measures 52.9 cm/s. The peak systolic velocity in the left ICA measures 60.1 cm/s. The peak systolic velocity in the l eft CCA measures 48.1 cm/s. The right IC/CC ratio is1.11. The left IC/CC ratio is 1.25. Vertebral flow: antegrade, bilaterally. . IMPRESSION: No hemodynamically significant stenosis of both internal carotid arteries.
[2019-09-01] MEDS: Aspirin 81 mg Enteric Coated Tablet PO SCH (21:48)
[2019-09-01] MEDS: Apixaban 5 MG TAB PO SCH (21:49)
[2019-09-01] MEDS: Atorvastatin Calcium 40 MG TAB PO SCH (21:49)
[2019-09-01] MEDS: Acetaminophen 325 MG TAB PO PRN (22:05)
[2019-09-02 05:43] LABS: Cardiac Risk 6.2 (Less than 4.5)
[2019-09-02] MEDS: Levothyroxine Sodium 88 MCG TAB PO SCH (07:47)
[2019-09-02] MEDS: Digoxin 0.125 MG TAB PO SCH (09:11)
[2019-09-02] MEDS: Phenazopyridine HCl 97.5 MG TABLET PO SCH ×3 (09:12→18:02)
[2019-09-02] MEDS: Apixaban 5 MG TAB PO SCH ×2 (09:12→21:44)
--- NOTE | 2019-09-02 10:50 | CON ---
DATE OF TELEMEDICINE CONSULTATION: 09/02/2019 CHIEF COMPLAINT: Acute stroke. HISTORY OF PRESENT ILLNESS: The patient reports she has had weakness of her left leg occasionally early in the morning, on and off, over the past several months , but she was brought in with left-sided numbness and she felt like her entire left side fell asleep. She has discomfort in the left foot, arm, and eye. She feels like there is something in the eye and she needs to take it out, and the eye is painful, and she says it is hard to describe feeling at the left side. She has never had any stroke in the past. She also is experiencing weakness on the left side. She has no difficulties with her vision. No speech difficulty was expressed. PREVIOUS MEDICAL HISTORY: Hypertension and atrial fibrillation. PAST SURGICAL HISTORY: She had 5 hernia repairs, last one was 20 years ago; right shoulder replacement; gallbladder surgery. SOCIAL HISTORY: She lives with her son. She is a nonsmoker. No alcohol use. FAMILY HISTORY: The patient has a sister, who from a heat stroke at 58 or 59 years of age. Father is unknown to the patient. Mother of cancer of the liver at 93. Her son has had a TIA. She has 6 children, 4 boys and 2 girls, all her sons have had coronary artery disease and atrial fibrillation, and her daughter are healthy. REVIEW OF SYSTEMS: Currently, PULMONARY: Negative for shortness of breath or cough. GI: Negative for nausea, vomiting or diarrhea. CARDIAC: Positive for atrial fibrillation. Negative for chest pain. NEUROLOGIC: Positive for numbness and weakness on the left side of the body. DERMATOLOGIC: Negative for any skin rash. OPHTHALMOLOGIC: Negative for any vision issues. LABORATORY DATA: White count 8.0, hemoglobin 16, hematocrit 47.4, and platelet count 239. Chemistry; sodium 137, potassium 4.4, chloride 109, bicarb 18, BUN 14, and creatinine 0.79. AST 23, ALT 18, alk phos 45. Lipid profile within normal limits. Her MRI is currently pending. I reviewed her CT scan, which did not show any acute lesion, and her carotid Doppler was completed, and her Doppler study does not show any hemodynamically significant stenosis of carotid arteries. PHYSICAL EXAMINATION: VITAL SIGNS: Temperature 98.6, pulse 86, respiratory rate 16, O2 sats 97%, and blood pressure . GENERAL APPEARANCE: Well-built, well-nourished lady, who is comfortable in bed, very pleasant. CHEST: Clear vesicular breathing. CARDIOVASCULAR: S1 and S2 heard. No murmurs. ABDOMEN: Soft and nontender. No organomegaly noted. NEUROLOGICAL: Higher intellectual functions, normal orientation to time, place and person. Cranial nerves; normal extraocular movements, no facial asymmetry, decreased sensation of the face on the left side, normal hearing bilaterally to finger rub, tongue midline, no atrophy noted. Motor examination; bulk normal, tone normal, strength is 5/5 on the right side and on the left side. 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 Muscle groups tested are deltoid, biceps, triceps, wrist extension and flexion, finger extension and flexion bilaterally. Cerebellar exam is normal [id number] and heel-to- ortez. Sensory is decreased on the left side in the face, arm and leg distribution. Deep tendon reflexes are 2+ on the right side, 1 on the left side. IMPRESSION: The patient is an 89-year-old lady, based on the description of the discomfort, I suspect she might have had a right thalamic ischemic lesion, likely microvascular in nature. RECOMMENDATION: Please continue aspirin, but at a higher dose of 325 mg per day along with her Xarelto. We will see her as needed. Please call neurologist on- call whenever there is additional assistance needed. Please complete her workup with echocardiogram. The patient can see Dr. Knox as outpatient if her pain syndrome persists. Job ID: [id number] [facility]
--- NOTE | 2019-09-02 11:01 | MRI ---
Exam: Brain MRI without contrast HISTORY: Left-sided weakness. Evaluate for stroke. COMPARISON: 11/04/2010 FINDINGS: Calvarial marrow signal intensity: Appropriate T1 signal Gradient echo sequence: No hemorrhage Brain parenchyma: No mass, mass effect or midline shift. Brain volume, age-appropriate. Cortical [place]-white matter differentiation: Preserved Restricted diffusion: Central arterial flow voids are maintained. Absent restricted diffusion White matter signal intensities: T2, FLAIR white matter hyperintensities due to chronic small vessel ischemic changes Sinuses: Minimal mucosal thickening in the ethmoid air cells. Small left maxillary sinus mucus retent ion cysts. Normal opacification of bilateral mastoid air cells. IMPRESSION: 1. Absent restricted diffusion. No acute infarct. 2. Age-appropriate atrophy. Minimal chronic small vessel ischemic changes white matter
[2019-09-02] MEDS: Acetaminophen 325 MG TAB PO PRN (13:35)
--- NOTE | 2019-09-02 13:51 | PDOC.HOSPP ---
- Subjective Subjective: Seen and examined. Left-sided weakness persists per patient. No facial asymmetry are drooping. No slurred speech. Patient pending complete workup for acute CVA. May benefit from short course of inpatient physical therapy and occupational therapy to regain her strength and independence. - Objective Vital Signs & Weight: Vital Signs (12 hours) Temp Pulse Resp BP Pulse Ox 09/02/19 11:44 97.8 F 90 18 119/79 97 09/02/19 09:11 86 09/02/19 08:00 97 09/02/19 07:53 98.6 F 86 16 164/97 H 97 09/02/19 03:52 97.6 F 102 H 20 136/83 96 Weight Weight 136 lb 8 oz I&O: 09/01/19 09/02/19 09/03/19 06:59 06:59 06:59 Intake Total 1079 Output Total 850 Balance 229 Result Diagrams: 09/01/19 10:51 09/01/19 10:51 Radiology Reviewed by me: Yes Hospitalist ROS - Review of Systems All other systems reviewed; all pertinent +/- noted in HPI/Subj - Medication Medications: Active Medications Generic Name Dose Route Start Last Admin Trade Name Freq PRN Reason Stop Dose Admin Acetaminophen 650 mg 09/01/19 20:19 09/02/19 13:35 Tylenol PO 650 mg Q6H PRN Administration Mild Pain (1-3)/FEVER Apixaban 5 mg 09/01/19 21:00 09/02/19 09:12 Eliquis PO 5 mg BID FELIX Administration Aspirin 81 mg 09/01/19 21:00 09/01/19 21:48 Ecotrin PO 81 mg HS FELIX Administration Atorvastatin Calcium 40 mg 09/01/19 21:00 09/01/19 21:49 Lipitor PO 40 mg HS FELIX Administration Digoxin 0.125 mg 09/02/19 09:00 09/02/19 09:11 Lanoxin PO 0.125 mg DAILY FELIX Administration Sodium Chloride 1,000 mls @ 75 mls/hr 09/01/19 13:45 09/01/19 22:06 Normal Saline 0.9% IV 1,000 mls .[id number] FELIX Administration Ceftriaxone Sodium 1 gm/ 100 mls @ 200 mls/hr 09/01/19 17:00 09/01/19 18:37 Sodium Chloride IVPB 100 mls 1700 FELIX Administration Levothyroxine Sodium 88 mcg 09/02/19 09:00 09/02/19 07:47 Synthroid PO 88 mcg DAILY FELIX Administration Phenazopyridine HCl 97.5 mg 09/02/19 09:00 09/02/19 13:35 Azo Standard PO 97.5 mg PC FELIX Administration - Exam General Appearance: NAD, awake alert Eye: anicteric sclera ENT: normocephalic atraumatic, moist mucosa Neck: supple, no lymphadenopathy Heart: no murmur, no gallops, no rubs Respiratory: CTAB, no wheezes, no rales, no ronchi Gastrointestinal: soft, non-tender, no guarding, no rigidity Extremities: no edema Skin: no lesions, no rashes Neurological: cranial nerve grossly intact Neurological - other findings: Mild weakness on left hand and leg +4/5. No facial asymetry Musculoskeletal: generalized weakness Psychiatric: normal affect, normal behavior, A&O x 3 Hosp A/P (1) CVA (cerebral vascular accident) Code(s): I63.9 - CEREBRAL INFARCTION, UNSPECIFIED Status: Acute (2) Acute on chronic diastolic (congestive) heart failure Code(s): I50.33 - ACUTE ON CHRONIC DIASTOLIC (CONGESTIVE) HEART FAILURE Status : Chronic (3) Atrial fibrillation with RVR Code(s): I48.91 - UNSPECIFIED ATRIAL FIBRILLATION Status: Chronic (4) CAD (coronary artery disease) Code(s): I25.10 - ATHSCL HEART DISEASE OF [place] CORONARY ARTERY W/O ANG PCTRS Status: Chronic (5) DM2 (diabetes mellitus, type 2) Status: Chronic (6) H/O: CVA (cerebrovascular accident) Code(s): Z86.73 - PRSNL HX OF TIA (TIA), AND CEREB INFRC W/O RESID DEFICITS Status: Chronic (7) HLD (hyperlipidemia) Code(s): E78.5 - HYPERLIPIDEMIA, UNSPECIFIED Status: Chronic (8) Hypothyroidism Code(s): E03.9 - HYPOTHYROIDISM, UNSPECIFIED Status: Chronic (9) UTI (urinary tract infection) Status: Acute - Plan Plan: medical unit with telemetry stroke unit MRI the brain pending echocardiogram pending ultrasound of the carotid's noted, no hemodynamically significant stenosis chronic anticoagulation with Eliquis antibiotics for urinary tract infection, culture pending urine culture de-escalate to culture and sensitivity when able blood pressure control blood sugar control continue other medications as able G.I. prophylaxis next line DVT prophylaxis
[2019-09-02] MEDS ORDERED: Nitroglycerin 0.4 MG TAB (25 Tab Bottle) SL PRN (15:54)
[2019-09-02] MEDS: cefTRIAXone\\ROCEPHIN 1 GM in Sodium Chloride 0.9% 100 ML IVPB SCH (18:02)
[2019-09-02] MEDS: Aspirin 81 mg Enteric Coated Tablet PO SCH (21:44)
[2019-09-02] MEDS: Metoprolol Tartrate 50 MG TAB PO SCH (21:44)
[2019-09-02] MEDS: Atorvastatin Calcium 40 MG TAB PO SCH (21:44)
[2019-09-03] MEDS: Levothyroxine Sodium 88 MCG TAB PO SCH (08:02)
[2019-09-03] MEDS ORDERED: Spironolactone 25 MG TAB PO SCH (09:00)
[2019-09-03] MEDS: Metoprolol Tartrate 50 MG TAB PO SCH (10:10)
[2019-09-03] MEDS: Digoxin 0.125 MG TAB PO SCH (10:10)
[2019-09-03] MEDS: Phenazopyridine HCl 97.5 MG TABLET PO SCH ×2 (10:10→13:28)
[2019-09-03] MEDS: Apixaban 5 MG TAB PO SCH (10:11)
--- NOTE | 2019-09-03 11:18 | CON ---
DATE OF CONSULTATION: 09/03/2019 REASON FOR CONSULTATION: Chronic atrial fibrillation, recent stroke. HISTORY OF PRESENT ILLNESS: Ms. Castañeda is a very pleasant 89-year-old woman. She has history of chronic atrial fibrillation. She came to the hospital with weakness in the left leg, off and on over the last several months, brought to the hospital with left-sided numbness, felt like "my entire left side fell asleep." She was seen by Dr. Jose, Neurology, who thought this was likely related to microvascular right thalamic stroke. The patient does have a history of chronic atrial fibrillation. She was on aspirin 81 mg a day and Eliquis 2.5 mg twice a day. The patient is 89 years of age and is 62 kg, right on the edge of which dose would be appropriate based on the current recommendations. Current recommendations are the Eliquis dose to be reduced if the weight is 60 kg or less. MEDICATIONS: At home, she was takin. Eliquis 2.5 twice a day. 2. Aspirin 81 mg a day. 3. Spironolactone. 4. Digoxin 0.125 mg a day. 5. Metoprolol tartrate 50 mg twice a day. 6. Levothyroxine. ALLERGIES: 1. CODEINE. 2. IODINE. 3. MORPHINE. PAST MEDICAL HISTORY: History of coronary artery disease, stable. No recent angina. PHYSICAL EXAMINATION: VITAL SIGNS: Blood pressure 155/87, pulse 80 and irregular. LUNGS: Clear. CARDIAC: Irregularly irregular. ABDOMEN: Soft and nontender. EXTREMITIES: No clubbing or cyanosis. No edema. PERTINENT LABORATORY DATA: Creatinine is 0.79, GFR is 69. LDL cholesterol is 110. ASSESSMENT: 1. Chronic atrial fibrillation. 2. Recent stroke, thought to be small-vessel. 3. She is right on the borderline of which dose which is appropriate on the Eliquis as outlined above. The dose has been increased to apixaban 5 mg twice a day. PLAN: 1. Okay to me to be released home. 2. We will need to consider statin therapy as an outpatient, that may have already been considered. 3. Be reluctant to increase aspirin and increase Eliquis that she is certainly at a high bleeding risk. 4. Okay to me to be released home. Currently, she is on Eliquis 5 mg twice a day and aspirin. Job ID: [id number]
[2019-09-03 15:45] VITALS: BP 141/74; TEMP 98
--- NOTE | 2019-09-03 22:31 | DIS ---
DATE OF ADMISSION: 09/01/2019 DATE OF DISCHARGE: 09/03/2019 DISCHARGE DISPOSITION: Home. FOLLOWUP: Follow up with primary care physician, Dr. Morales, in 1 week. Follow up with Cardiology, Dr. Estes, and Neurology, Dr. Knox, in 1 to 2 weeks. DISCHARGE MEDICATIONS: Macrobid 100 mg twice daily for 1 week. The patient will continue all other home medications. Please note that Eliquis dose was increased to 5 mg b.i.d. per Cardiology and Neurology recommendation. The patient was seen and examined on the day of discharge. Denies any new complaints. Left-sided numbness and weakness improving. BRIEF HOSPITAL COURSE: The patient is an 89-year-old female with chronic atrial fibrillation, on anticoagulation with Eliquis 2.5 mg b.i.d., presented to the hospital with left-sided weakness and numbness. Please refer to the history and physical dated September 01, 2019, for details on hospitalization. The patient was admitted to the hospital with a diagnosis of suspected acute CVA. Initial CT scan of the brain was negative for acute findings. She underwent MRI of the brain that did not show large-vessel CVA. It showed chronic small-vessel ischemic changes. The patient was evaluated by Neurology as well as Cardiology. Per Neurology, the patient probably had a right thalamic microvascular ischemic lesion. She will continue 81 mg aspirin. Eliquis dose was increased to 5 mg b.i.d. Cardiology also agreed with this plan. The patient understands the risks, not limited to life-threatening bleeding from Eliquis. All other home medications were left unchanged. The patient's workup was also consistent with Klebsiella pneumoniae UTI. She was placed on IV antibiotics that has been transitioned to oral. FINAL DIAGNOSES: 1. 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 2. Chronic atrial fibrillation, on anticoagulation. Please note, Eliquis dose was increased to 5 mg b.i.d. from 2.5 mg b.i.d. 3. Hypertension. 4. Chronic kidney disease stage 2. 5. Klebsiella urinary tract infection. Plan was discussed with the patient in detail. She stated understanding. TIME SPENT: Total time coordinating the discharge of this patient was 33 minutes. Job ID: [id number]
[2019-09-04] MEDS ORDERED: Multivit, Therapeutic 1 TAB PO SCH (09:00)
--- NOTE | 2019-09-08 10:56 | EKG ---
Test Reason : Blood Pressure : / mmHG Vent. Rate : 078 BPM Atrial Rate : 070 BPM P-R Int : 000 ms QRS Dur : 080 ms QT Int : 378 ms P-R-T Axes : 000 022 105 degrees QTc Int : 430 ms Atrial fibrillation Nonspecific ST and T wave abnormality Abnormal ECG Lateral ischemia Confirmed by KAREL WILEY, BEAU Herzog ([id number]), writer editor MUNDO LUIS ([id number]) on 09/08/2019 10:56:18 AM Referred By: Confirmed By:BEAU VINSON MD
== END 2019-09-03 17:30 | disposition home health service (06) | DRG 65 ==
LOC: ERS 10:05 → 2SE 13:48
PROVIDERS: ADMIT Internal Medicine; ATTEND Emergency Medicine
DX: I63.9 Cerebral infarction, unspecified (principal); I48.20 Chronic atrial fibrillation, unspecified; N39.0 Urinary tract infection, site not specified; I13.0 Hypertensive heart and chronic kidney disease with heart failure and stage 1 through stage 4 chronic kidney disease, or unspecified chronic kidney disease; G81.94 Hemiplegia, unspecified affecting left nondominant side; I50.32 Chronic diastolic (congestive) heart failure; I25.10 Atherosclerotic heart disease of native coronary artery without angina pectoris; B96.1 Klebsiella pneumoniae [K. pneumoniae] as the cause of diseases classified elsewhere; N18.2 Chronic kidney disease, stage 2 (mild); E11.22 Type 2 diabetes mellitus with diabetic chronic kidney disease; R40.2412 Glasgow coma scale score 13-15, at arrival to emergency department; Z88.5 Allergy status to narcotic agent; Z91.041 Radiographic dye allergy status; Z88.2 Allergy status to sulfonamides; Z88.8 Allergy status to other drugs, medicaments and biological substances; Z90.49 Acquired absence of other specified parts of digestive tract; Z90.710 Acquired absence of both cervix and uterus; Z79.82 Long term (current) use of aspirin
CPT/HCPCS: 36415; 70450; 70551; 80053; 80061; 81003; 81015; 85025; 85610; 85730; 87077; 87086; 87186; 93005; 93306; 93880; 96365; J0696; J3490

== ENCOUNTER 2019-09-04 08:07 | Observation (INO) | payer MEDICARE ==
[2019-09-04 08:22] LABS: #Basophils 0.1 thou/uL (0.0-0.2); #Eosinphils 0.1 thou/uL (0.0-0.7); #Lymphocytes 2.4 thou/uL (1.20-3.40); #Monocytes 0.5 thou/uL (0.11-0.59); #Neutrophils 7.2 thou/uL (1.40-6.50); %Basophils 0.6 % (0.0-1.0); %Eosinophils 1.3 % (0.0-10.0); %Lymphocytes 23.5 % (21.0-51.0); %Monocytes 5.2 % (0.0-10.0); %Neutrophils 69.4 % (42.0-75.0); Hemoglobin 16.4 g/dL (12.0-16.0); Mean Corpuscular HGB CONC 33.4 g/dL (32.0-36.0); Mean Corpuscular Hemoglobin 31.5 pg (27.0-31.0); Mean Corpuscular Volume 94.5 fL (78.0-98.0); Mean Platelet Volume 8.4 fL (7.4-10.4); Platelet Count 254 thou/uL (130-400); RBC Distribution Width 12.1 % (11.5-14.5); Red Blood Cell (RBC) Count 5.21 mill/uL (4.20-5.40); White Blood Cell (WBC) Count 10.3 thou/uL (4.8-10.8)
--- NOTE | 2019-09-04 08:22 | CT ---
EXAM: CT brain without contrast HISTORY: Dizziness and tingling in left leg COMPARISON: 09/01/2019 TECHNIQUE: Multiple contiguous axial images were obtained and a CT of the brain without contrast. FINDINGS: There are scattered hypodensities in the subcortical and periventricular white matter consi stent with small vessel ischemic disease. There is no evidence of hydrocephalus, intracranial hemorrhage, or extra-axial fluid collection. The calvarium and overlying soft tissues are unremarkable. The visualized paranasal sinuses and masto id air cells are well aerated. IMPRESSION: No evidence of acute intracranial abnormality Dr. Ying notified of findings at 8:20 AM on 09/04/2019.
[2019-09-04 08:28] LABS: INR-International Normal Ratio 1.1
[2019-09-04 08:36] LABS: ALT (SGPT) 28 U/L (8-55); AST (SGOT) 23 U/L (5-34); Albumin 3.9 g/dL (3.4-4.8); Alkaline Phosphatase 49 U/L (40-110); Anion Gap 11 mmol/L (10-20); BUN (Urea Nitrogen) 16 mg/dL (9.8-20.1); Bilirubin, Total 0.7 mg/dL (0.2-1.2); CK (CPK) 36 U/L (29-168); Calc. Creatinine Clearance 0 mL/min (70-130); Calcium 9.6 mg/dL (7.8-10.44); Carbon Dioxide 24 mmol/L (23-31); Chloride 107 mmol/L (98-107); Estimated GFR-MDRD 51; Globulin 3.5 g/dL (2.4-3.5); Glucose 102 mg/dL (83-110); Potassium 4.2 mmol/L (3.5-5.1); Protein, Total 7.4 g/dL (6.0-8.3); Sodium 138 mmol/L (136-145)
--- NOTE | 2019-09-04 09:14 | RAD ---
PORTABLE CHEST 1 VIEW: DATE: 09/04/2019. TIME: 8:39 AM. HISTORY: Stroke alert, chest pain. COMPARISON: 03/17/2019. FINDINGS: The heart size is prominent but stable. The aorta is tortuous. Chronic changes are stable. No foca l areas of consolidation, pneumothoraces, chance pulmonary edema, or pleural effusions are noted. Pos top changes of right humeral head prostheses are again seen. There are degenerative changes in the l eft shoulder joint. IMPRESSION: Stable exam. No acute process. POS: TPC
[2019-09-04] MEDS ORDERED: Aspirin 300 MG Suppository ONE (09:28)
[2019-09-04] MEDS ORDERED: Meclizine HCl 25 MG TAB ONE (10:16)
[2019-09-04] MEDS ORDERED: Aspirin Chewable 81 MG TAB ONE (10:17)
[2019-09-04] MEDS ORDERED: Metoprolol Tartrate 25 MG TAB PO SCH (11:45)
[2019-09-04] MEDS ORDERED: Apixaban 5 MG TAB PO SCH (11:45)
[2019-09-04] MEDS ORDERED: Nitroglycerin 0.4 MG TAB (25 Tab Bottle) PO PRN (12:04)
[2019-09-04] MEDS ORDERED: Ondansetron ODT 4 MG TAB PO PRN (12:06)
[2019-09-04] MEDS ORDERED: Ondansetron PF 4 MG/2 ML Vial IVP PRN (12:06)
[2019-09-04] MEDS ORDERED: Acetaminophen 650 MG Suppository PR PRN (12:06)
[2019-09-04] MEDS ORDERED: Acetaminophen 325 MG TAB PO PRN (12:06)
[2019-09-04] MEDS ORDERED: Nitroglycerin 0.4 MG TAB (25 Tab Bottle) SL SCH (12:15)
[2019-09-04 12:32] LABS: Troponin I 0.017 ng/mL (< 0.028)
--- NOTE | 2019-09-04 12:45 | HP ---
PRIMARY CARE PHYSICIAN: Baudilio Morales MD. PRIMARY MUSHROOM FARMER: Chance Estes MD. CHIEF COMPLAINT: Left-sided weakness, followed by chest discomfort. HISTORY OF PRESENT ILLNESS: The patient is an 89-year-old white female with chronic atrial fibrillation with recent CVA, presented to the emergency room with above complaints. The patient was discharged from this facility yesterday with a diagnosis of acute CVA involving the right thalamic region. Eliquis dose was increased to 5 mg b.i.d. from 2.5 mg b.i.d. She is also on 81 mg aspirin. She had an echocardiogram that showed ejection fraction of 60% to 65% with mild mitral regurgitation and mild tricuspid regurgitation. Postdischarge, the patient felt fine. This morning around 6 a.m., the patient had sudden onset of left-sided weakness along with numbness. She also felt dizzy along with some spinning sensation. She denies any double vision, blurring of vision , or facial asymmetry. Her whole left side was numb including face. She denies any fall or injuries due to this. She took 5 mg Eliquis last night. While in the ambulance, the patient had chest discomfort in the precordial area that was sharp, intermittent, without any aggravating or relieving factor. She denies any nausea, vomiting, diaphoresis, palpitations, or shortness of breath. In the emergency room, her CT scan of the brain was negative for acute CVA. Initial vital signs showed temperature 97.7 with respirations of 17 and blood pressure of 139/104 with pulse rate of 96. She received IV Cardizem due to atrial fibrillation with rapid ventricular response. Her left-sided symptoms are currently improving. PAST MEDICAL HISTORY: 1. Chronic atrial fibrillation, on anticoagulation. 2. Hypertension. 3. Acute CVA involving the right thalamic lesion two days ago. 4. CKD stage 2. 5. Recent Klebsiella urinary tract infection, on antibiotic. 6. Hyperlipidemia. 7. Hypothyroidism. PAST SURGICAL HISTORY: 1. Appendectomy. 2. Cholecystectomy. 3. Hernia repair. 4. Rectocele repair. 5. Hysterectomy. ALLERGIES: THE PATIENT IS ALLERGIC TO CODEINE, IODINE, MORPHINE, AND SULFA. CURRENT HOME MEDICATIONS: Same as medications at discharge. 1. Sublingual nitroglycerin as needed. 2. Aspirin 81 mg nightly. 3. Digoxin 0.125 mg daily. 4. Levothyroxine 88 mcg daily. 5. Aldactone 25 mg daily. 6. Eliquis 5 mg b.i.d. 7. Lipitor 40 mg nightly. 8. Lopressor 50 mg b.i.d. 9. Multivitamin one tablet daily. 10. Macrobid 100 mg b.i.d. SOCIAL HISTORY: The patient currently lives at home. Her daughter is at the bedside. She denies any history of smoking, alcohol, or drug use. She has been exposed to secondhand smoking. Code status was verified. The patient requested to be chemical code only. She does not want to be resuscitated with CPR or intubation. FAMILY HISTORY: Negative for heart disease or strokes. REVIEW OF SYSTEMS: All other review of systems was reviewed and was found negative. PHYSICAL EXAMINATION: VITAL SIGNS: As discussed above. GENERAL: An 89-year-old female, in no apparent distress. HEENT: Head, atraumatic and normocephalic. Sclerae anicteric. Moist mucous membranes. No oral lesion. Pupils were 3 mm bilaterally with good response to light. Extraocular muscles were intact. Cranial nerves 2 through 12 are normal on examination. NECK: Supple. No JVD. No carotid bruit. LUNGS: Clear to auscultation bilaterally. No wheezing, rales, or rhonchi. HEART: S1 and S2 present. Irregularly irregular. No rubs or gallops. 2/6 systolic murmur over the mitral area. ABDOMEN: Soft and nontender. Bowel sounds present. No rebound or guarding. No costovertebral angle tenderness. EXTREMITIES: No edema or calf tenderness. NEUROLOGY: Cranial nerves 2 through 12 are normal on examination. Power was 5/ 5 in the right upper and right lower extremity. It was 3 to 4 over 5 in left lower extremity. Sensation to touch was diminished on the left. PSYCHIATRY: The patient is alert, awake, and oriented x3. Normal affect. SKIN: Warm and dry. LYMPH NODES: No palpable lymph nodes in the neck. PERIPHERAL VASCULAR: Radial pulses palpable bilaterally. MUSCULOSKELETAL: No joint swelling or tenderness. LABORATORY FINDINGS: WBC 10.3 with hemoglobin 16.4, hematocrit 49.2, and platelet count 254. PT, INR, and PTT normal range. Troponin x1 was negative. Sodium 138, potassium 4.2, chloride 107, bicarb 24, BUN 16, and creatinine 1.02. LFTs in normal range. IMAGING STUDIES: CT scan of the brain by my review was negative for acute CVA. Chest x-ray by my review was negative for acute findings. EKG by my review showed sinus rhythm with nonspecific ST-T wave changes in the lateral leads. IMPRESSION: 1. TIA. 2. Chest discomfort, rule out ACS. 3. Recent right thalamic CVA. Please note that Eliquis was increased to 5 mg b.i.d. 3 days ago. The patient is also on 81 mg aspirin. 4. Klebsiella urinary tract infection diagnosed last admission, currently on Macrobid. 5. Chronic atrial fibrillation with rapid ventricular response in the emergency room, requiring IV Cardizem push. 6. Chronic anticoagulation. 7. Hypertension. 8. Hypothyroidism. 9. Chronic kidney disease, stage 2. 10. Sulfa, iodine, codeine, and morphine allergy. PLAN: The patient will be monitored in the stroke unit. We will consult Neurology as well as Ophthalmology due to left eye discomfort. However, she denies any blurring of vision. We will also check digoxin level. Resume all other home medications. Continue Macrobid. Stroke Team consultation. I discussed with Cardiology, Dr. Estes, who recommended medical management. We will resume chronic anticoagulation. Discharge planning. I discussed snf or rehabilitation. The patient agrees with going to snf or rehab for a short term. We will consult social work case manager. Code status verified, chemical code only. Plan of care was discussed with the patient in detail. She stated understanding. Job ID: [id number] [facility]TD[facility]
[2019-09-04] MEDS ORDERED: Metoprolol Tartrate 25 MG TAB ONE (12:46)
[2019-09-04 13:05] LABS: Digoxin 0.45 ng/mL (0.8-2.0)
[2019-09-04] MEDS ORDERED: Potassium Chloride 20 MEQ TAB PO SCH (14:15)
[2019-09-04 15:50] VITALS: BMI 25.2
[2019-09-04 16:03] LABS: Troponin I 0.061 ng/mL (< 0.028)
[2019-09-04 19:51] LABS: CKMB 1.3 ng/mL (0-6.6)
[2019-09-04] MEDS ORDERED: Famotidine 20 MG TAB PO SCH (21:00)
[2019-09-04] MEDS ORDERED: Aspirin 81 mg Enteric Coated Tablet PO SCH (21:00)
[2019-09-04] MEDS ORDERED: Atorvastatin Calcium 40 MG TAB PO SCH (21:00)
[2019-09-04] MEDS ORDERED: Famotidine/PF 20 mg/2ml Vial SLOW IVP SCH (21:00)
[2019-09-04] MEDS ORDERED: Lisinopril 10 MG TAB PO SCH (21:00)
[2019-09-04] MEDS: Metoprolol Tartrate 25 MG TAB PO SCH (21:05)
[2019-09-04] MEDS: Nitrofurantoin Monohyd/M-Cryst 100 MG CAP PO SCH (21:06)
[2019-09-04] MEDS: Apixaban 5 MG TAB PO SCH (21:06)
--- NOTE | 2019-09-04 22:07 | PRG ---
DATE OF SERVICE: 09/04/2019 Ms. Castañeda came back to the hospital with complaints of increased numbness on her left side and a feeling of dizziness. Her CT did not reveal any evidence of a hemorrhage. She had taken her medication prior to this attack. She is now getting closer to her baseline. Given that she is on maximum medical therapy, there is nothing really different we can do at this point. I explained this to her. No further testing is warranted. She can be discharged home tomorrow. Job ID: [id number]
[2019-09-05 04:53] LABS: #Basophils 0.1 thou/uL (0.0-0.2); #Eosinphils 0.2 thou/uL (0.0-0.7); #Lymphocytes 2.8 thou/uL (1.20-3.40); #Monocytes 0.5 thou/uL (0.11-0.59); #Neutrophils 3.7 thou/uL (1.40-6.50); %Basophils 1.1 % (0.0-1.0); %Eosinophils 3.2 % (0.0-10.0); %Lymphocytes 38.4 % (21.0-51.0); %Monocytes 7.3 % (0.0-10.0); %Neutrophils 50.1 % (42.0-75.0); Hemoglobin 15.4 g/dL (12.0-16.0); Mean Corpuscular HGB CONC 33.7 g/dL (32.0-36.0); Mean Platelet Volume 8.6 fL (7.4-10.4); Platelet Count 233 thou/uL (130-400); RBC Distribution Width 11.9 % (11.5-14.5); Red Blood Cell (RBC) Count 4.82 mill/uL (4.20-5.40); White Blood Cell (WBC) Count 7.3 thou/uL (4.8-10.8)
[2019-09-05 05:05] LABS: Anion Gap 11 mmol/L (10-20); BUN (Urea Nitrogen) 16 mg/dL (9.8-20.1); Calc. Creatinine Clearance 46 mL/min (70-130); Calcium 8.7 mg/dL (7.8-10.44); Carbon Dioxide 22 mmol/L (23-31); Chloride 109 mmol/L (98-107); Estimated GFR-MDRD 64; Glucose 103 mg/dL (83-110); Potassium 4.6 mmol/L (3.5-5.1); Sodium 137 mmol/L (136-145)
[2019-09-05 05:27] LABS: CKMB 1.2 ng/mL (0-6.6)
[2019-09-05] MEDS ORDERED: Levothyroxine Sodium 88 MCG TAB PO SCH (06:00)
[2019-09-05 07:40] VITALS: TEMP 98.3
[2019-09-05] MEDS ORDERED: Multivit, Therapeutic 1 TAB PO SCH (09:00)
[2019-09-05] MEDS ORDERED: Cyanocobalamin (Vitamin B-12) 1,000 MCG TAB PO SCH (09:00)
[2019-09-05] MEDS ORDERED: Digoxin 0.125 MG TAB PO SCH (09:00)
[2019-09-05] MEDS ORDERED: Spironolactone 25 MG TAB PO SCH (09:00)
[2019-09-05] MEDS: Apixaban 5 MG TAB PO SCH (09:07)
[2019-09-05] MEDS: Metoprolol Tartrate 25 MG TAB PO SCH (09:10)
[2019-09-05] MEDS: Nitrofurantoin Monohyd/M-Cryst 100 MG CAP PO SCH (09:12)
[2019-09-05 12:55] VITALS: BP 117/91
--- NOTE | 2019-09-06 10:07 | DIS ---
DATE OF ADMISSION: 09/04/2019 DATE OF DISCHARGE: 09/05/2019 DISCHARGE MEDICATIONS: Same as admission medication. Vitamin B12 1000 mcg was added. INPATIENT CONSULT: Neurology, Dr. Knox. The patient was seen and examined on the day of discharge. Denies any new complaints. No new focal deficit. Left-sided weakness improving. BRIEF HOSPITAL COURSE: The patient is an 89-year-old female with chronic atrial fibrillation with recent CVA, on Eliquis 5 mg b.i.d. and 81 mg aspirin daily, presented to the hospital with sudden onset of left-sided weakness followed by chest discomfort. Please refer to the history and physical for further details. The patient was admitted to the hospital with a diagnosis of transient ischemic attack. Symptoms are back to her baseline. Please note, the patient recently had acute CVA and was discharged the day before admission. At that time, Eliquis was increased to 5 mg b.i.d. from 2.5 mg b.i.d. This admission, the patient was evaluated by Dr. Knox, who recommended to continue full dose Eliquis along with 81 mg aspirin. Home health care has been arranged. A CT scan of the brain this admission was negative for acute findings. She appears stable for discharge and understands the plan of care. FINAL DIAGNOSES: 1. Transient ischemic attack. 2. Chest discomfort, acute coronary syndrome ruled out. I discussed with Cardiology, Dr. Estes who recommended to continue current medications. 3. Recent right thalamic cerebrovascular accident, on full-dose Eliquis along with aspirin 81 mg daily. 4. Recent Klebsiella urinary tract infection. 5. Chronic atrial fibrillation with rapid ventricular response in the emergency room, requiring one dose of IV Cardizem push. 6. Chronic anticoagulation. 7. Hypertension. 8. Hypothyroidism. 9. Chronic kidney disease, stage 2. 10. Sulfa, iodine, codeine, and morphine allergy. 11. The patient understands the above plan of care. Job ID: [id number]
--- NOTE | 2019-09-08 14:24 | EKG ---
Test Reason : Blood Pressure : / mmHG Vent. Rate : 113 BPM Atrial Rate : 144 BPM P-R Int : 000 ms QRS Dur : 076 ms QT Int : 282 ms P-R-T Axes : 000 040 215 degrees QTc Int : 386 ms Atrial fibrillation with rapid ventricular response Abnormal ECG Confirmed by ARAVIND LOONEY DO ([id number]), editor index MUNDO LUIS ([id number]) on 09/08/2019 2:23:54 PM Referred By: Confirmed By:ARAVIND LOONEY DO
== END 2019-09-05 16:57 | disposition home health service (06) ==
LOC: ERS 08:07 → 2SE 13:58
PROVIDERS: ADMIT Internal Medicine; ATTEND Emergency Medicine
DX: G45.9 Transient cerebral ischemic attack, unspecified (principal); R07.89 Other chest pain; I48.20 Chronic atrial fibrillation, unspecified; I12.9 Hypertensive chronic kidney disease with stage 1 through stage 4 chronic kidney disease, or unspecified chronic kidney disease; N18.9 Chronic kidney disease, unspecified; N39.0 Urinary tract infection, site not specified; B96.1 Klebsiella pneumoniae [K. pneumoniae] as the cause of diseases classified elsewhere; E78.5 Hyperlipidemia, unspecified; E03.9 Hypothyroidism, unspecified; Z88.2 Allergy status to sulfonamides; Z88.5 Allergy status to narcotic agent; Z79.01 Long term (current) use of anticoagulants; Z79.82 Long term (current) use of aspirin; Z79.899 Other long term (current) drug therapy; Z91.041 Radiographic dye allergy status; Z66 Do not resuscitate
CPT/HCPCS: 70450; 71045; 80048; 80053; 80162; 82550; 82553 ×2; 82607 ×2; 82746; 82962; 84484 ×3; 85025 ×2; 85610; 85730; 87324; 87449; 93005; 94760; 96374; 97116; 97139 ×2; 97535; 99291; 99292; G0378 ×3; 36415; 36416; J8597

== ENCOUNTER 2020-09-18 14:01 | Inpatient (IN) | payer MEDICARE ==
[2020-09-18 15:01] LABS: #Basophils 0.1 thou/uL (0.0-0.2); #Eosinphils 0.1 thou/uL (0.0-0.7); #Lymphocytes 2.9 thou/uL (1.20-3.40); #Monocytes 0.6 thou/uL (0.11-0.59); #Neutrophils 5.6 thou/uL (1.40-6.50); %Basophils 0.8 % (0.0-1.0); %Eosinophils 0.6 % (0.0-10.0); %Lymphocytes 31.5 % (21.0-51.0); %Monocytes 6.3 % (0.0-10.0); %Neutrophils 60.8 % (42.0-75.0); Hemoglobin 16.3 g/dL (12.0-16.0); Mean Corpuscular HGB CONC 33.9 g/dL (32.0-36.0); Mean Corpuscular Hemoglobin 32.5 pg (27.0-31.0); Mean Corpuscular Volume 95.7 fL (78.0-98.0); Mean Platelet Volume 8.5 fL (7.4-10.4); Platelet Count 213 thou/uL (130-400); Red Blood Cell (RBC) Count 5.01 mill/uL (4.20-5.40); White Blood Cell (WBC) Count 9.3 thou/uL (4.8-10.8)
[2020-09-18 15:23] LABS: Digoxin 0.18 ng/mL (0.8-2.0)
[2020-09-18 15:25] LABS: ALT (SGPT) 15 U/L (8-55); AST (SGOT) 20 U/L (5-34); Albumin 4.1 g/dL (3.4-4.8); Alkaline Phosphatase 61 U/L (40-110); Anion Gap 19 mmol/L (10-20); BUN (Urea Nitrogen) 12 mg/dL (9.8-20.1); Bilirubin, Total 1.1 mg/dL (0.2-1.2); Calc. Creatinine Clearance 0 mL/min (70-130); Calcium 9.5 mg/dL (7.8-10.44); Carbon Dioxide 21 mmol/L (23-31); Chloride 105 mmol/L (98-107); Globulin 3.4 g/dL (2.4-3.5); Glucose 97 mg/dL (83-110); Potassium 4.6 mmol/L (3.5-5.1); Protein, Total 7.5 g/dL (5.8-8.1); Sodium 140 mmol/L (136-145)
[2020-09-18] MEDS ORDERED: Metoprolol Tartrate 5 MG/5 ML VIAL IVP SCH (18:30)
[2020-09-18] MEDS ORDERED: Sodium Chloride 0.9% 1,000 ML IV SCH (18:30)
[2020-09-18] MEDS ORDERED: Diltiazem 125 MG/25 ML ONE (18:56)
[2020-09-18 19:19] LABS: Troponin I 0.011 ng/mL (< 0.028)
[2020-09-18] MEDS ORDERED: Aspirin Chewable 81 MG TAB ONE (19:44)
[2020-09-18 21:38] VITALS: BMI 26.5
[2020-09-18 22:17] LABS: Troponin I Less than 0.010 ng/mL (< 0.028)
[2020-09-18] MEDS: Atorvastatin Calcium 40 MG TAB PO SCH (22:55)
[2020-09-18] MEDS ORDERED: Apixaban 5 MG TAB PO SCH (23:15)
[2020-09-19 00:33] LABS: Bacteria/HPF None Seen HPF (None Seen); Bilirubin Negative (Negative); Blood, Urine Trace (Negative); Clarity Clear (Clear); Glucose, Urine (Dipstick) Normal (Negative); Ketone, Urine Negative (Negative); Leukocyte Negative Leu/uL (Negative); Nitrite Negative (Negative); Protein, Urine (Dipstick) Negative (Neg-Trace); RBC/HPF 0-3 HPF (0-3); Specific Gravity, Urine 1.004 (1.002-1.036); Squamous Epithelial 0-3 HPF (0-3); Urobilinogen Normal mg/dL (Less than 2); WBC/HPF 0-3 HPF (0-3)
[2020-09-19 00:37] LABS: Urine Culture Reflex No No
[2020-09-19 04:31] LABS: #Basophils 0.1 thou/uL (0.0-0.2); #Eosinphils 0.1 thou/uL (0.0-0.7); #Lymphocytes 3.1 thou/uL (1.20-3.40); #Monocytes 0.6 thou/uL (0.11-0.59); #Neutrophils 2.8 thou/uL (1.40-6.50); %Basophils 1.3 % (0.0-1.0); %Eosinophils 1.6 % (0.0-10.0); %Lymphocytes 46.8 % (21.0-51.0); %Monocytes 8.3 % (0.0-10.0); Mean Corpuscular HGB CONC 33.6 g/dL (32.0-36.0); Mean Corpuscular Hemoglobin 31.4 pg (27.0-31.0); Mean Corpuscular Volume 93.7 fL (78.0-98.0); Mean Platelet Volume 8.5 fL (7.4-10.4); Platelet Count 209 thou/uL (130-400); Red Blood Cell (RBC) Count 4.46 mill/uL (4.20-5.40); White Blood Cell (WBC) Count 6.6 thou/uL (4.8-10.8)
[2020-09-19 04:47] LABS: Anion Gap 13 mmol/L (10-20); BUN (Urea Nitrogen) 12 mg/dL (9.8-20.1); Calc. Creatinine Clearance 54 mL/min (70-130); Calcium 8.6 mg/dL (7.8-10.44); Carbon Dioxide 22 mmol/L (23-31); Cardiac Risk 4.4 (Less than 4.5); Chloride 109 mmol/L (98-107); Cholesterol 122 mg/dl (< 200 Desired); Glucose 99 mg/dL (83-110); HDL Cholesterol 28 mg/dL (>60 Neg Risk); LDL Cholesterol, Calculated 74 mg/dL; Potassium 3.9 mmol/L (3.5-5.1); Sodium 140 mmol/L (136-145); Triglycerides 101 mg/dL (Less than 150)
[2020-09-19 05:05] LABS: Free T4 (Free Thyroxine) 1.11 ng/dL (0.70-1.48); Thyroid Stimulating Hormone 2.2123 uIU/mL (0.35-4.94)
[2020-09-19 06:17] LABS: SARS-CoV-2 PCR by NAA Not Detected (NotDetected)
[2020-09-19] MEDS: Apixaban 5 MG TAB PO SCH ×2 (07:58→21:31)
[2020-09-19] MEDS ORDERED: Spironolactone 25 MG TAB PO SCH (09:30)
[2020-09-19] MEDS ORDERED: Aspirin 81 mg Enteric Coated Tablet PO SCH (21:00)
[2020-09-19] MEDS: Atorvastatin Calcium 40 MG TAB PO SCH (21:31)
[2020-09-20] MEDS: Apixaban 5 MG TAB PO SCH (07:43)
[2020-09-20] MEDS ORDERED: Spironolactone 25 MG TAB PO SCH (08:00)
[2020-09-20 11:45] VITALS: BP 120/75; TEMP 98
== END 2020-09-20 13:08 | disposition home or self-care (01) | DRG 313 ==
LOC: ERS 14:01 → 2NO 18:34 → OBSVTOIN 18:34
PROVIDERS: ADMIT Internal Medicine; ATTEND Internal Medicine
DX: R07.89 Other chest pain (principal); I48.20 Chronic atrial fibrillation, unspecified; I10 Essential (primary) hypertension; E78.5 Hyperlipidemia, unspecified; E03.9 Hypothyroidism, unspecified; I25.10 Atherosclerotic heart disease of native coronary artery without angina pectoris; I25.84 Coronary atherosclerosis due to calcified coronary lesion; K52.9 Noninfective gastroenteritis and colitis, unspecified; R32 Unspecified urinary incontinence; R35.0 Frequency of micturition; Z86.73 Personal history of transient ischemic attack (TIA), and cerebral infarction without residual deficits; Z79.01 Long term (current) use of anticoagulants; Z79.82 Long term (current) use of aspirin; Z79.899 Other long term (current) drug therapy; Z88.2 Allergy status to sulfonamides; Z88.5 Allergy status to narcotic agent; Z91.041 Radiographic dye allergy status; Z79.890 Hormone replacement therapy; Z88.0 Allergy status to penicillin; Z20.822 Contact with and (suspected) exposure to COVID-19
CPT/HCPCS: 36415; 71045; 80048; 80053; 80061; 80162; 81001; 83735; 83880; 84439; 84443; 84484; 85025; 87635; 93005; 93306; 94760; 96365; 96375; 96376; G0378; U0003; U0005

== ENCOUNTER 2021-02-13 15:52 | Emergency (ER) | payer MEDICARE ==
[2021-02-13 16:46] LABS: #Eosinphils 0.1 thou/uL (0.0-0.7); #Monocytes 0.6 thou/uL (0.11-0.59); #Neutrophils 3.7 thou/uL (1.40-6.50); %Basophils 0.6 % (0.0-1.0); %Eosinophils 0.9 % (0.0-10.0); %Lymphocytes 40.9 % (21.0-51.0); %Monocytes 7.8 % (0.0-10.0); %Neutrophils 49.8 % (42.0-75.0); Hemoglobin 15.2 g/dL (12.0-16.0); Mean Corpuscular HGB CONC 35.4 g/dL (32.0-36.0); Mean Corpuscular Hemoglobin 33.3 pg (27.0-31.0); Mean Corpuscular Volume 94.1 fL (78.0-98.0); Mean Platelet Volume 8.6 fL (7.4-10.4); Platelet Count 219 thou/uL (130-400); Red Blood Cell (RBC) Count 4.55 mill/uL (4.20-5.40); White Blood Cell (WBC) Count 7.4 thou/uL (4.8-10.8)
[2021-02-13 17:10] LABS: ALT (SGPT) 12 U/L (8-55); AST (SGOT) 15 U/L (5-34); Albumin 3.7 g/dL (3.4-4.8); Alkaline Phosphatase 52 U/L (40-110); Anion Gap 13 mmol/L (10-20); BUN (Urea Nitrogen) 13 mg/dL (9.8-20.1); Bilirubin, Total 0.5 mg/dL (0.2-1.2); Calc. Creatinine Clearance 0 mL/min (70-130); Calcium 9.1 mg/dL (7.8-10.44); Carbon Dioxide 20 mmol/L (23-31); Chloride 107 mmol/L (98-107); Glucose 111 mg/dL (83-110); Potassium 4.1 mmol/L (3.5-5.1); Protein, Total 6.7 g/dL (5.8-8.1); Sodium 136 mmol/L (136-145)
[2021-02-13 17:20] LABS: Digoxin 0.52 ng/mL (0.8-2.0)
[2021-02-13 17:22] LABS: Troponin I Less than 0.010 ng/mL (< 0.028)
== END 2021-02-13 19:10 | disposition home or self-care (01) ==
LOC: ERS 15:52
DX: J90 Pleural effusion, not elsewhere classified (principal); I48.20 Chronic atrial fibrillation, unspecified; Z79.899 Other long term (current) drug therapy; Z79.01 Long term (current) use of anticoagulants; E03.9 Hypothyroidism, unspecified; I10 Essential (primary) hypertension
CPT/HCPCS: 36415; 71045; 80053; 80162; 84484; 85025; 93005

== ENCOUNTER 2021-04-02 15:01 | Inpatient (IN) | payer MEDICARE ==
[~2021-04-02 15:01] MED LIST: Iopamidol-370 76% 500 ML 1 ML ONE
[2021-04-02 15:42] LABS: #Basophils 0.1 thou/uL (0.0-0.2); #Eosinphils 0.1 thou/uL (0.0-0.7); #Monocytes 0.6 thou/uL (0.11-0.59); #Neutrophils 3.7 thou/uL (1.40-6.50); %Basophils 0.7 % (0.0-1.0); %Lymphocytes 40.4 % (21.0-51.0); %Monocytes 7.7 % (0.0-10.0); %Neutrophils 50.3 % (42.0-75.0); Hemoglobin 14.2 g/dL (12.0-16.0); Mean Corpuscular Hemoglobin 32.3 pg (27.0-31.0); Mean Platelet Volume 8.7 fL (7.4-10.4); Platelet Count 248 thou/uL (130-400); RBC Distribution Width 12.4 % (11.5-14.5); Red Blood Cell (RBC) Count 4.41 mill/uL (4.20-5.40); White Blood Cell (WBC) Count 7.4 thou/uL (4.8-10.8)
[2021-04-02 16:06] LABS: ALT (SGPT) 12 U/L (8-55); AST (SGOT) 15 U/L (5-34); Albumin 3.6 g/dL (3.4-4.8); Alkaline Phosphatase 52 U/L (40-110); Anion Gap 11 mmol/L (10-20); BUN (Urea Nitrogen) 13 mg/dL (9.8-20.1); Bilirubin, Total 0.4 mg/dL (0.2-1.2); Calc. Creatinine Clearance 0 mL/min (70-130); Calcium 9.4 mg/dL (7.8-10.44); Carbon Dioxide 25 mmol/L (23-31); Chloride 105 mmol/L (98-107); Globulin 3.3 g/dL (2.4-3.5); Glucose 119 mg/dL (83-110); Lipase 40 U/L (8-78); Potassium 3.7 mmol/L (3.5-5.1); Protein, Total 6.9 g/dL (5.8-8.1); Sodium 137 mmol/L (136-145)
[2021-04-02 16:24] LABS: Prothrombin Time 13.4 sec (12.0-14.7)
[2021-04-02 16:25] LABS: PTT 30.3 sec (22.9-36.1)
[2021-04-02] MEDS ORDERED: Nitroglycerin 2% Ointment 1 INCH/1 GM Packet ONE (16:49)
[2021-04-02] MEDS ORDERED: hydrALAZINE 20 MG/ML VIAL SLOW IVP PRN (17:43)
[2021-04-02] MEDS ORDERED: Aspirin 325 MG TAB PO SCH (17:45)
[2021-04-02] MEDS ORDERED: Enoxaparin Sodium 40 MG/0.4 ML SYRINGE SC SCH (17:45)
[2021-04-02 19:07] LABS: Troponin I Less than 0.010 ng/mL (< 0.028)
[2021-04-02 19:27] VITALS: BMI 26.4
[2021-04-02] MEDS ORDERED: Famotidine/PF 20 mg/2ml Vial SLOW IVP SCH (21:00)
[2021-04-02] MEDS ORDERED: Atorvastatin Calcium 40 MG TAB PO SCH (21:00)
[2021-04-02] MEDS ORDERED: Aspirin 81 mg Enteric Coated Tablet PO SCH (21:00)
[2021-04-02 21:49] LABS: Troponin I Less than 0.010 ng/mL (< 0.028)
[2021-04-02] MEDS: Apixaban 5 MG TAB PO SCH (21:58)
[2021-04-02] MEDS: Atorvastatin Calcium 40 MG TAB PO SCH (21:58)
[2021-04-02] MEDS: Sodium Chloride 0.9% 1,000 ML IV SCH (21:58)
[2021-04-03 05:57] LABS: Cardiac Risk 4.3 (Less than 4.5)
[2021-04-03] MEDS: Levothyroxine Sodium 88 MCG TAB PO SCH (06:08)
[2021-04-03] MEDS ORDERED: Nitroglycerin 0.4 MG TAB (25 Tab Bottle) SL PRN (06:55)
[2021-04-03] MEDS ORDERED: Lorazepam 2 MG/ML VIAL SLOW IVP SCH (08:30)
[2021-04-03 08:33] LABS: SARS-CoV-2 PCR by NAA Not Detected (NotDetected)
[2021-04-03] MEDS ORDERED: Aspirin Chewable 81 MG TAB PO SCH (09:00)
[2021-04-03] MEDS ORDERED: Aspirin 81 mg Enteric Coated Tablet PO SCH (09:00)
[2021-04-03] MEDS ORDERED: Enoxaparin Sodium 40 MG/0.4 ML SYRINGE SC SCH (09:00)
[2021-04-03] MEDS: Spironolactone 25 MG TAB PO SCH (09:13)
[2021-04-03] MEDS: Apixaban 5 MG TAB PO SCH ×2 (09:13→21:51)
[2021-04-03] MEDS: Cyanocobalamin (Vitamin B-12) 1,000 MCG TAB PO SCH (09:13)
[2021-04-03] MEDS: Famotidine/PF 20 mg/2ml Vial SLOW IVP SCH (09:14)
[2021-04-03] MEDS: Sodium Chloride 0.9% 1,000 ML IV SCH ×2 (09:15→18:51)
[2021-04-03] MEDS: Atorvastatin Calcium 40 MG TAB PO SCH (21:51)
[2021-04-04] MEDS: Sodium Chloride 0.9% 1,000 ML IV SCH (03:29)
[2021-04-04] MEDS: Acetaminophen 500 MG TAB PO PRN ×2 (06:10→20:23)
[2021-04-04] MEDS: Levothyroxine Sodium 88 MCG TAB PO SCH (06:10)
[2021-04-04] MEDS: Aspirin 325 mg Enteric Coated Tablet PO SCH (08:54)
[2021-04-04] MEDS: Famotidine/PF 20 mg/2ml Vial SLOW IVP SCH (08:54)
[2021-04-04] MEDS: Apixaban 5 MG TAB PO SCH ×2 (08:54→20:23)
[2021-04-04] MEDS: Cyanocobalamin (Vitamin B-12) 1,000 MCG TAB PO SCH (08:54)
[2021-04-04] MEDS: Spironolactone 25 MG TAB PO SCH (08:54)
[2021-04-04] MEDS: Atorvastatin Calcium 40 MG TAB PO SCH (20:23)
[2021-04-05 05:16] LABS: Hemoglobin 14.2 g/dL (12.0-16.0); Platelet Count 224 thou/uL (130-400)
[2021-04-05] MEDS: Levothyroxine Sodium 88 MCG TAB PO SCH (06:26)
[2021-04-05] MEDS: Cyanocobalamin (Vitamin B-12) 1,000 MCG TAB PO SCH (08:02)
[2021-04-05] MEDS: Apixaban 5 MG TAB PO SCH (08:02)
[2021-04-05] MEDS: Spironolactone 25 MG TAB PO SCH (08:02)
[2021-04-05] MEDS: Famotidine/PF 20 mg/2ml Vial SLOW IVP SCH (08:03)
[2021-04-05] MEDS: Aspirin 325 mg Enteric Coated Tablet PO SCH (08:04)
[2021-04-05] MEDS ORDERED: Digoxin 0.125 MG TAB PO SCH (09:00)
[2021-04-05] MEDS ORDERED: Metoprolol Tartrate 50 MG TAB PO SCH ×2 (11:30→21:00)
[2021-04-05 11:47] VITALS: BP 106/63; TEMP 97.8
== END 2021-04-05 12:42 | disposition home health service (06) | DRG 74 ==
LOC: ERS 15:01 → 2SE 17:28
PROVIDERS: ADMIT Internal Medicine; ATTEND Internal Medicine
DX: M54.12 Radiculopathy, cervical region (principal); I48.20 Chronic atrial fibrillation, unspecified; I50.32 Chronic diastolic (congestive) heart failure; G45.9 Transient cerebral ischemic attack, unspecified; E03.9 Hypothyroidism, unspecified; R94.31 Abnormal electrocardiogram [ECG] [EKG]; I08.1 Rheumatic disorders of both mitral and tricuspid valves; I25.10 Atherosclerotic heart disease of native coronary artery without angina pectoris; E11.9 Type 2 diabetes mellitus without complications; R07.89 Other chest pain; I11.0 Hypertensive heart disease with heart failure; E78.5 Hyperlipidemia, unspecified; Z98.49 Cataract extraction status, unspecified eye; Z90.49 Acquired absence of other specified parts of digestive tract; Z90.710 Acquired absence of both cervix and uterus; Z79.01 Long term (current) use of anticoagulants; Z88.2 Allergy status to sulfonamides; Z88.0 Allergy status to penicillin; Z88.5 Allergy status to narcotic agent; Z88.8 Allergy status to other drugs, medicaments and biological substances; Z79.82 Long term (current) use of aspirin; Z79.899 Other long term (current) drug therapy; Z86.73 Personal history of transient ischemic attack (TIA), and cerebral infarction without residual deficits
CPT/HCPCS: 36415; 70450; 70551; 71275; 72050; 74174; 80053; 80061; 82565; 83690; 84484; 85014; 85018; 85025; 85049; 85610; 85730; 93005; 93010; 93306; 93880; J2060; Q9967; S0028; U0003; U0005